=== PATIENT | female | born 1940 | race Caucasian/White ===

== ENCOUNTER → 2017-02-24 | Outpatient (REF) | payer MEDICARE ==
[~2017-02-24] MED LIST: /CELE20CA; /MOXI40TA OR; /TIOT18INH INH; /WARF25TA; /WARF25TA OR; ACET500C; ACET65TA OR; ALBU83IN IN; ASPI325T OR; CARD240T3 OR; CLAR5CHW; CLARITIN; COLA100C2; COLA100C2 OR; COUMADIN; DARV100T OR; DOXYCYC100 PO; DRISDOL50 PO; FEOSOL PO; FERR325T; FERROUS GLUCONATE; FLUID PILL PO; GUAIPOW PO; HYDR25TA6 OR; HYDR7.5T38 PO; KLS75TAB; NITR0.4S SL; OCEAN NASAL SPRAY; OTC ACID REFLUX MED PO; OYST500T76; PERC10TA9 PO; PERC5TAB8 OR; PRED10TA2 OR; PRIL40CA OR; PRILOSEC OTC PO; SENO8.6T5; SIMV40TA2 OR; SPIRIVA INH; THERGRAN; TRAM50TA2; TYLE325T5 PO; VITAMIN D50000 UNT; VITAMIN D50000 UNT OR; VYTORIN40 PO; ZANT150T; ZOCO40TA; ZOCOR40 PO; [UNRECOGNIZED DRUG - OTHER]; [UNRECOGNIZED DRUG - OTHER]; metamucil
[2017-02-24 13:30] LABS: MEAN CORPUSCULAR HEMOGLOBIN 31.2 pg (27.0-33.0); MEAN CORPUSCULAR VOLUME 100.8 fl (80.0-96.0); PLATELET COUNT, AUTOMATED 285 10^3/uL (150-450); WHITE BLOOD COUNT 11.1 10^3/uL (4.0-10.0)
[2017-02-24 13:50] LABS: ALBUMIN 3.8 GM/DL (3.2-5.2); ALBUMIN/GLOBULIN RATIO 1.03 (1.00-1.93); ALKALINE PHOSPHATASE 96 U/L (45-117); ALT/SGPT 15 U/L (12-78); ANION GAP 8 MEQ/L (8-16); AST/SGOT 13 U/L (7-37); BILIRUBIN,TOTAL 0.4 MG/DL (0.2-1.0); BLOOD UREA NITROGEN 13 MG/DL (7-18); CALCIUM LEVEL 9.2 MG/DL (8.8-10.2); CARBON DIOXIDE LEVEL 25 MEQ/L (21-32); CHLORIDE LEVEL 108 MEQ/L (98-107); CHOLESTEROL LEVEL 170 MG/DL (<200); CREATININE FOR GFR 1.13 MG/DL (0.55-1.02); FREE T4 1.18 NG/DL (0.76-1.46); GLOMERULAR FILTRATION RATE 49.8 (>39); GLUCOSE, FASTING 101 MG/DL (83-110); POTASSIUM SERUM 4.1 MEQ/L (3.5-5.1); SODIUM LEVEL 141 MEQ/L (136-145); TOTAL PROTEIN 7.5 GM/DL (6.4-8.2); TRIGLYCERIDES LEVEL 176 MG/DL (<150)
[2017-02-24 13:57] LABS: ERYTHROCYTE SEDIMENTATION RATE 40 mm/hr (0-30)
[2017-02-25 10:47] LABS: ALBUMIN 3.98 GM/DL (3.29-5.55); GAMMA GLOBULIN % 17.7 % (11.1-18.8)
[2017-02-27 00:06] LABS: FREE KAPPA LIGHT CHAINS SERUM 38.9 mg/L (3.3-19.4); FREE LAMBDA LIGHT CHAINS SERUM 34.1 mg/L (5.7-26.3); KAPPA/LAMBDA RATIO SERUM 1.14 (0.26-1.65)
== END ==
LOC: M SFHCADAM 11:09
PROVIDERS: ATTEND Family Medicine
DX: R63.4 Abnormal weight loss (principal); F43.22 Adjustment disorder with anxiety; E78.2 Mixed hyperlipidemia; E74.9 Disorder of carbohydrate metabolism, unspecified; E55.9 Vitamin D deficiency, unspecified; M79.1 Myalgia; Z79.899 Other long term (current) drug therapy

== ENCOUNTER → 2017-02-24 | Outpatient (CLI) | payer MEDICARE ==
--- NOTE | 2017-02-24 13:26 | REP ---
PA and lateral chest: Comparisons are 07/23/2016 and 09/16/2010. There is chronic bilateral interstitial coarsening compatible with chronic fibrosis. This is unchanged. Cardiac size is normal. The jonathan and mediastinum are unchanged unremarkable. There is diffuse demineralization. There are multiple thoracic and lumbar vertebral body compressions with multilevel vertebroplasties. This is unchanged. Impression: There are no acute cardiopulmonary findings. There is chronic fibrosis. There are multiple thoracic and lumbar spine vertebroplasties. No interval change. Signed by Dominik Farr MD 02/24/2017 01:17 P
== END ==
LOC: M ADAMS 11:18
PROVIDERS: ATTEND Family Medicine
DX: J01.90 Acute sinusitis, unspecified (principal); J44.9 Chronic obstructive pulmonary disease, unspecified; M81.0 Age-related osteoporosis without current pathological fracture; F43.22 Adjustment disorder with anxiety; E78.2 Mixed hyperlipidemia; E74.9 Disorder of carbohydrate metabolism, unspecified; E55.9 Vitamin D deficiency, unspecified; M79.1 Myalgia; R63.4 Abnormal weight loss; Z79.899 Other long term (current) drug therapy; Z98.890 Other specified postprocedural states
CPT/HCPCS: 71020; 80053; 80061; 82306; 82550; 83036; 83883; 84165; 84439; 84443; 85027; 85652; 86038; 86431; G0463

== ENCOUNTER 2017-11-18 08:22 | Day surgery (SDC) | payer MEDICARE ==
[~2017-11-18 08:22] MED LIST changes: -/CELE20CA; -/MOXI40TA OR; -/TIOT18INH INH; -/WARF25TA; -/WARF25TA OR; -ACET500C; -ACET65TA OR; +ACETAMINOPHEN 325 MG TAB PO; -ALBU83IN IN; -ASPI325T OR; -CARD240T3 OR; -CLAR5CHW; -CLARITIN; -COLA100C2; -COLA100C2 OR; -COUMADIN; -DARV100T OR; -DOXYCYC100 PO; -DRISDOL50 PO; -FEOSOL PO; -FERR325T; -FERROUS GLUCONATE; -FLUID PILL PO; -GUAIPOW PO; -HYDR25TA6 OR; -HYDR7.5T38 PO; -KLS75TAB; -NITR0.4S SL; -OCEAN NASAL SPRAY; -OTC ACID REFLUX MED PO; -OYST500T76; -PERC10TA9 PO; -PERC5TAB8 OR; +PHENYLEPHRINE HCL 10 % OPHTH. SOL 5ML OD; -PRED10TA2 OR; -PRIL40CA OR; -PRILOSEC OTC PO; +PROPARACAINE 0.5% OPHTH SOL 15ML OD; -SENO8.6T5; -SIMV40TA2 OR; -SPIRIVA INH; -THERGRAN; -TRAM50TA2; -TYLE325T5 PO; -VITAMIN D50000 UNT; -VITAMIN D50000 UNT OR; -VYTORIN40 PO; -ZANT150T; -ZOCO40TA; -ZOCOR40 PO; -[UNRECOGNIZED DRUG - OTHER]; -[UNRECOGNIZED DRUG - OTHER]; -metamucil
[2017-11-18] MEDS ORDERED: KETOROLAC 0.5% OPHTH SOLN OD (08:30)
[2017-11-18] MEDS ORDERED: TRIMETHOBENZAMIDE 300 MG CAP PO (08:30)
[2017-11-18] MEDS ORDERED: AcetaZOLAMIDE 500 MG ER CAP PO (08:30)
[2017-11-18] MEDS: OFLOXACIN 0.3 % (OCUFLOX) OPTH SOL 5ML OD (09:52)
[2017-11-18] MEDS: PHENYLEPHRINE 2.5% OPHTH SOL 2ML OD (09:52)
[2017-11-18] MEDS: TROPICAMIDE 1% OPHTH SOLN 2ML OD (09:52)
[2017-11-18] MEDS: CYCLOPENTOLATE 2% OPHTH SOLN 2ML BTL OD (09:53)
[2017-11-18] MEDS: LIDOCAINE 3.5 % 1ML OPHTH TOPICAL GEL OU (09:53)
[2017-11-18] MEDS ORDERED: fentaNYL 100 MCG/2 ML INJECTION (J3010) As Ordered (10:56)
[2017-11-18] MEDS ORDERED: MIDAZOLAM INJ 2 MG/2 ML VIAL (J2250) As Ordered (10:56)
[2017-11-18] MEDS: POVIDONE-IODINE 5% OPHTH PREP SOL 30ML As Ordered (11:55)
[2017-11-18] MEDS: CEFUROXIME 1MG/0.1ML INTRACAMERAL INJ As Ordered (11:55)
[2017-11-18] MEDS: HEALON DUET (HEALON 10MG/ML 0.55ML & HEALON ENDOCOAT 30MG/ML 0.85ML) As Ordered (11:55)
[2017-11-18] MEDS: LIDOCAINE 1% SDV 5 ML VIAL As Ordered (11:55)
== END 2017-11-18 12:49 | disposition home or self-care (01) ==
LOC: M SDC 08:22
DX: H25.11 Age-related nuclear cataract, right eye (principal); R07.89 Other chest pain; E78.5 Hyperlipidemia, unspecified; M81.0 Age-related osteoporosis without current pathological fracture; F41.9 Anxiety disorder, unspecified; Z79.899 Other long term (current) drug therapy; J44.9 Chronic obstructive pulmonary disease, unspecified; Z87.891 Personal history of nicotine dependence; Z85.118 Personal history of other malignant neoplasm of bronchus and lung
CPT/HCPCS: 66984

== ENCOUNTER 2017-11-25 08:17 | Day surgery (SDC) | payer MEDICARE ==
[~2017-11-25 08:17] MED LIST changes: -PHENYLEPHRINE HCL 10 % OPHTH. SOL 5ML OD; +PHENYLEPHRINE HCL 10 % OPHTH. SOL 5ML OS; -PROPARACAINE 0.5% OPHTH SOL 15ML OD; +PROPARACAINE 0.5% OPHTH SOL 15ML OS
[2017-11-25] MEDS: OFLOXACIN 0.3 % (OCUFLOX) OPTH SOL 5ML OS (08:52)
[2017-11-25] MEDS: LIDOCAINE 3.5 % 1ML OPHTH TOPICAL GEL OU (08:52)
[2017-11-25] MEDS: CYCLOPENTOLATE 2% OPHTH SOLN 2ML BTL OS (08:52)
[2017-11-25] MEDS: TROPICAMIDE 1% OPHTH SOLN 2ML OS (08:52)
[2017-11-25] MEDS: PHENYLEPHRINE 2.5% OPHTH SOL 2ML OS (08:52)
[2017-11-25] MEDS: POVIDONE-IODINE 5% OPHTH PREP SOL 30ML As Ordered (09:35)
[2017-11-25] MEDS ORDERED: MIDAZOLAM INJ 2 MG/2 ML VIAL (J2250) As Ordered (09:40)
[2017-11-25] MEDS ORDERED: fentaNYL 100 MCG/2 ML INJECTION (J3010) As Ordered (09:40)
[2017-11-25] MEDS: BALANCED SALT IRRIGATION SOLUTION 500ML BAG (FOR OR EYE MACHINE) As Ordered (09:42)
[2017-11-25] MEDS: LIDOCAINE 1% SDV 5 ML VIAL As Ordered (09:43)
[2017-11-25] MEDS: CEFUROXIME 1MG/0.1ML INTRACAMERAL INJ As Ordered (09:43)
[2017-11-25] MEDS: HEALON DUET (HEALON 10MG/ML 0.55ML & HEALON ENDOCOAT 30MG/ML 0.85ML) As Ordered (09:43)
[2017-11-25] MEDS: ACETYLCHOLINE OPHTH SOLN 1% 2ML (MIOCHOL-E) As Ordered (09:51)
[2017-11-25] MEDS ORDERED: TRIMETHOBENZAMIDE 300 MG CAP PO (10:30)
[2017-11-25] MEDS ORDERED: KETOROLAC 0.5% OPHTH SOLN OS (10:30)
[2017-11-25] MEDS: AcetaZOLAMIDE 500 MG ER CAP PO (10:30)
== END 2017-11-25 10:55 | disposition home or self-care (01) ==
LOC: M SDC 08:17
DX: H25.12 Age-related nuclear cataract, left eye (principal); J44.9 Chronic obstructive pulmonary disease, unspecified; E78.5 Hyperlipidemia, unspecified; Z88.8 Allergy status to other drugs, medicaments and biological substances; M81.0 Age-related osteoporosis without current pathological fracture; F41.9 Anxiety disorder, unspecified; Z87.891 Personal history of nicotine dependence; Z85.118 Personal history of other malignant neoplasm of bronchus and lung; Z79.899 Other long term (current) drug therapy
CPT/HCPCS: 66984

== ENCOUNTER → 2017-12-03 | Outpatient (REF) | payer MEDICARE ==
[2017-12-03 13:24] LABS: HEMATOCRIT 42.1 % (36.0-47.0); HEMOGLOBIN 13.3 g/dl (12.0-15.5); MEAN CORPUSCULAR HEMOGLOBIN 31.4 pg (27.0-33.0); MEAN CORPUSCULAR HGB CONC 31.6 g/dl (32.0-36.5); MEAN CORPUSCULAR VOLUME 99.5 fl (80.0-96.0); PLATELET COUNT, AUTOMATED 272 10^3/uL (150-450); RED BLOOD COUNT 4.23 10^6/uL (4.00-5.40); RED CELL DISTRIBUTION WIDTH 13.2 % (11.5-14.5)
[2017-12-03 13:33] LABS: APPEARANCE, URINE CLEAR (CLEAR); BACTERIA, URINE AUTO 1+ (NEGATIVE); BILIRUBIN, URINE AUTO NEGATIVE (NEGATIVE); BLOOD, URINE BLOOD NEGATIVE (NEGATIVE); COLOR, URINE YELLOW (YELLOW); GLUCOSE, URINE (UA) AUTO NEGATIVE (NEGATIVE); KETONE, URINE AUTO TRACE mg/dL (NEGATIVE); LEUKOCYTE ESTERASE, URINE AUTO 3+ (NEGATIVE); MUCUS, URINE SMALL (NEGATIVE); NITRITE, URINE AUTO NEGATIVE (NEGATIVE); PROTEIN, URINE AUTO NEGATIVE (NEGATIVE); RBC, URINE AUTO 5 /HPF (0-3); SPECIFIC GRAVITY URINE AUTO 1.012 (1.002-1.035); SQUAMOUS EPITHELIAL CELL UR AU 2 /HPF (0-6); TRANSITIONAL EPITHELIAL AUTO <1 /HPF; WBC, URINE AUTO 16 /HPF (0-3)
[2017-12-03 13:47] LABS: ALBUMIN 3.9 GM/DL (3.2-5.2); ALBUMIN/GLOBULIN RATIO 0.91 (1.00-1.93); ALKALINE PHOSPHATASE 120 U/L (45-117); ALT/SGPT 18 U/L (12-78); AMYLASE 40 U/L (25-115); ANION GAP 11 MEQ/L (8-16); AST/SGOT 14 U/L (7-37); BILIRUBIN,TOTAL 0.5 MG/DL (0.2-1.0); BLOOD UREA NITROGEN 19 MG/DL (7-18); CALCIUM LEVEL 9.2 MG/DL (8.8-10.2); CARBON DIOXIDE LEVEL 20 MEQ/L (21-32); CHLORIDE LEVEL 109 MEQ/L (98-107); FREE T4 1.37 NG/DL (0.76-1.46); GLOMERULAR FILTRATION RATE 46.4 (>39); GLUCOSE, FASTING 102 MG/DL (70-100); LIPASE 82 U/L (73-393); POTASSIUM SERUM 3.8 MEQ/L (3.5-5.1); SODIUM LEVEL 140 MEQ/L (136-145); TOTAL PROTEIN 8.2 GM/DL (6.4-8.2)
== END ==
LOC: M SFHCADAM 10:41
DX: K21.9 Gastro-esophageal reflux disease without esophagitis (principal); R63.4 Abnormal weight loss; R10.30 Lower abdominal pain, unspecified
CPT/HCPCS: 82150

== ENCOUNTER → 2018-01-29 | Outpatient (CLI) | payer MEDICARE ==
[2018-01-29 17:37] LABS: BACTERIA, URINE AUTO NEGATIVE (NEGATIVE); MUCUS, URINE SMALL (NEGATIVE); RBC, URINE AUTO 1 /HPF (0-3); SQUAMOUS EPITHELIAL CELL UR AU 1 /HPF (0-6); WBC, URINE AUTO 2 /HPF (0-3)
== END ==
LOC: M WUC 11:18
DX: J84.10 Pulmonary fibrosis, unspecified (principal); M51.04 Intervertebral disc disorders with myelopathy, thoracic region; M51.06 Intervertebral disc disorders with myelopathy, lumbar region; M43.8X6 Other specified deforming dorsopathies, lumbar region; J20.9 Acute bronchitis, unspecified; R10.30 Lower abdominal pain, unspecified
CPT/HCPCS: 81015

== ENCOUNTER → 2018-05-13 | Outpatient (CLI) | payer MEDICARE ==
[~2018-05-13] MED LIST changes: +/CELE20CA; +/MOXI40TA OR; +/TIOT18INH INH; +/WARF25TA; +/WARF25TA OR; +ACET500C; +ACET65TA OR; -ACETAMINOPHEN 325 MG TAB PO; +ALBU83IN IN; +ASPI325T OR; +CARD240T3 OR; +CLAR5CHW; +CLARITIN; +COLA100C2; +COLA100C2 OR; +COUMADIN; +DARV100T OR; +DOXYCYC100 PO; +DRISDOL50 PO; +FEOSOL PO; +FERR325T; +FERROUS GLUCONATE; +FLUID PILL PO; +GUAIPOW PO; +HYDR25TA6 OR; +HYDR7.5T38 PO; +INCR1INH; +KLS75TAB; +NITR0.4S SL; +OCEAN NASAL SPRAY; +OMEP20CA3; +OTC ACID REFLUX MED PO; +OYST500T76; +PERC10TA9 PO; +PERC5TAB8 OR; -PHENYLEPHRINE HCL 10 % OPHTH. SOL 5ML OS; +PRED10TA2 OR; +PRIL40CA OR; +PRILOSEC OTC PO; +PROAAER10 INH; -PROPARACAINE 0.5% OPHTH SOL 15ML OS; +SENO8.6T5; +SIMV40TA2 OR; +SPIRIVA INH; +THERGRAN; +TRAM50TA2; +TYLE325T5 PO; +VITAMIN D50000 UNT; +VITAMIN D50000 UNT OR; +VYTORIN40 PO; +ZANT150T; +ZOCO40TA; +ZOCOR40 PO; +[UNRECOGNIZED DRUG - OTHER]; +[UNRECOGNIZED DRUG - OTHER]; +metamucil
--- NOTE | 2018-05-13 17:13 | REP ---
CHEST, TWO VIEWS: Two views of the chest are performed and compared with multiple prior exams, most recent of which is 01/29/2018. Severe interstitial fibrosis is again seen bilaterally, predominately in the lung bases appearing relatively stable. There are also emphysematous and bullous changes bilaterally. There is no definite superimposed acute infiltrate. The heart is normal in size. Mediastinal silhouette is unchanged. Metallic clips are seen in the right hilar region. There is osteopenia. Multiple compression deformities are noted of the thoracic vertebral bodies with kyphoplasty noted in multiple levels. There is one new moderate compression deformity of a mid thoracic vertebral body compared to the most recent exam. Metallic clips are seen in the right upper quadrant of the abdomen. IMPRESSION: Severe stable fibrotic changes and emphysematous change. No definite superimposed acute infiltrate. One new moderate compression deformity of a midthoracic vertebral body noted, with other multiple compression deformities appearing stable. Electronically Signed by Dominik Bernal MD 05/13/2018 07:46 P
== END ==
LOC: M SMT 14:39
PROVIDERS: ATTEND Internal Medicine Pulmonary Disease
DX: J43.1 Panlobular emphysema (principal); J96.11 Chronic respiratory failure with hypoxia

== ENCOUNTER → 2018-08-10 | Outpatient (REF) | payer MEDICARE ==
[~2018-08-10] MED LIST changes: -/CELE20CA; -/MOXI40TA OR; -/TIOT18INH INH; -/WARF25TA; -/WARF25TA OR; +AVEL1TAB2 OR; +CELE1CAP4; +COUM1TAB18; +COUM1TAB18 OR; +SPIR1CAP INH
[2018-08-10 12:58] LABS: HEMATOCRIT 39.4 % (36.0-47.0); MEAN CORPUSCULAR HEMOGLOBIN 31.2 pg (27.0-33.0); MEAN CORPUSCULAR HGB CONC 30.5 g/dl (32.0-36.5); MEAN CORPUSCULAR VOLUME 102.3 fl (80.0-96.0); PLATELET COUNT, AUTOMATED 316 10^3/uL (150-450); RED BLOOD COUNT 3.85 10^6/uL (4.00-5.40); WHITE BLOOD COUNT 20.5 10^3/uL (4.0-10.0)
[2018-08-10 13:49] LABS: ALBUMIN 3.6 GM/DL (3.2-5.2); BILIRUBIN,TOTAL 0.3 MG/DL (0.2-1.0); CALCIUM LEVEL 9.5 MG/DL (8.8-10.2); CHOLESTEROL RISK RATIO 2.815 (<5); CREATININE FOR GFR 1.04 MG/DL (0.55-1.30); FREE T4 1.06 NG/DL (0.76-1.46); GLOMERULAR FILTRATION RATE 54.7 (>39); POTASSIUM SERUM 4.4 MEQ/L (3.5-5.1); THYROID STIMULATING HORMONE 2.34 uIU/ML (0.358-3.740); TOTAL PROTEIN 7.3 GM/DL (6.4-8.2)
[2018-08-10 14:47] LABS: ERYTHROCYTE SEDIMENTATION RATE 46 mm/hr (0-30)
== END ==
LOC: M SFHCADAM 09:30
PROVIDERS: ATTEND Family Medicine
DX: F43.22 Adjustment disorder with anxiety (principal); E78.2 Mixed hyperlipidemia; M15.9 Polyosteoarthritis, unspecified

== ENCOUNTER → 2018-10-29 | Outpatient (REF) | payer MEDICARE ==
[~2018-10-29] MED LIST changes: -OMEP20CA3; +OMEP20CA4
[2018-10-29 13:01] LABS: BASO # 0.1 10^3/uL (0.0-0.2); BASO % 0.4 % (0.0-1.0); EOS # 0.4 10^3/uL (0.0-0.50); EOS % 2.3 % (0.0-3.0); HEMATOCRIT 41.7 % (36.0-47.0); HEMOGLOBIN 13.1 g/dl (12.0-15.5); LYMPH # 2.6 10^3/uL (1.5-4.5); LYMPH % 16.6 % (24.0-44.0); MEAN CORPUSCULAR HEMOGLOBIN 32.1 pg (27.0-33.0); MEAN CORPUSCULAR HGB CONC 31.4 g/dl (32.0-36.5); MEAN CORPUSCULAR VOLUME 102.2 fl (80.0-96.0); MONO # 1.3 10^3/uL (0.0-0.8); MONO % 8.2 % (0.0-5.0); NEUTROPHILS # 11.4 10^3/uL (1.8-7.7); PLATELET COUNT, AUTOMATED 336 10^3/uL (150-450); RED BLOOD COUNT 4.08 10^6/uL (4.00-5.40); WHITE BLOOD COUNT 15.8 10^3/uL (4.0-10.0)
[2018-10-29 13:24] LABS: HEMOGLOBIN A1c 7.6 %
[2018-10-29 13:33] LABS: CALCIUM LEVEL 8.9 MG/DL (8.8-10.2); CREATININE FOR GFR 1.2 MG/DL (0.55-1.30); GLOMERULAR FILTRATION RATE 46.3 (>39); POTASSIUM SERUM 4.6 MEQ/L (3.5-5.1)
== END ==
LOC: M SFHCADAM 10:00
PROVIDERS: ATTEND Family Medicine
DX: D72.829 Elevated white blood cell count, unspecified (principal); R73.03 Prediabetes

== ENCOUNTER → 2019-02-16 | Outpatient (CLI) | payer MEDICARE ==
--- NOTE | 2019-02-16 11:15 | REP ---
Clinical: Cough. Technique: PA and lateral. Comparison: 05/13/2018. Findings: Mediastinum and cardiac silhouette are stable with evidence for multilevel vertebroplasty and extensive osteopenia and degenerative changes to the thoracic spine. Cardiac silhouette is stable/unchanged. Lung pichardo demonstrate diffuse fibrosis and scarring similar to prior examination. No obvious acute consolidation or effusion. No pneumothorax. Impression: 1. Relatively stable chronic changes including diffuse fibrosis and scarring. No obvious acute consolidation or effusion. Electronically Signed by Alfonso Bartlett MD 02/16/2019 11:06 A
== END ==
LOC: M ADAMS 10:52
PROVIDERS: ATTEND Internal Medicine Pulmonary Disease
DX: J43.1 Panlobular emphysema (principal); R05 Cough; J84.10 Pulmonary fibrosis, unspecified

== ENCOUNTER → 2019-03-09 | Outpatient (REF) | payer MEDICARE ==
[2019-03-09 12:45] LABS: CALCIUM LEVEL 9.6 MG/DL (8.8-10.2); CREATININE FOR GFR 1.22 MG/DL (0.55-1.30); GLOMERULAR FILTRATION RATE 45.4 (>39); POTASSIUM SERUM 4.6 MEQ/L (3.5-5.1)
== END ==
LOC: M LABDRWAD 12:22
PROVIDERS: ATTEND Internal Medicine Pulmonary Disease
DX: J43.1 Panlobular emphysema (principal)

== ENCOUNTER → 2019-04-16 | Outpatient (CLI) | payer MEDICARE ==
[~2019-04-16] MED LIST changes: +OMEP-172; -OMEP20CA4
[2019-04-16 17:53] LABS: CALCIUM LEVEL 9.6 MG/DL (8.8-10.2); CREATININE FOR GFR 1.41 MG/DL (0.55-1.30); GLOMERULAR FILTRATION RATE 38.4 (>39); POTASSIUM SERUM 4.5 MEQ/L (3.5-5.1)
== END ==
LOC: M ADAMS 09:53
PROVIDERS: ATTEND Internal Medicine Pulmonary Disease
DX: J96.11 Chronic respiratory failure with hypoxia (principal); J43.1 Panlobular emphysema

== ENCOUNTER 2019-04-26 10:13 | Inpatient (IN) | payer MEDICARE ==
[~2019-04-26] VITALS: Ht 142.2 cm; Wt 47.0 kg
[2019-04-26] MEDS: PANTOPRAZOLE 40MG TAB (PROTONIX) PO SCH (09:00)
[~2019-04-26 10:13] MED LIST changes: -INCR1INH; +INCR1INH INH; -OMEP-172; +OMEP1CAP73
[2019-04-26] MEDS ORDERED: IPRATROPIUM 0.5MG/ALBUTEROL 2.5MG INH SOL UD 3ML (DUONEB)(J7620) NEB PRN (11:00)
[2019-04-26] MEDS ORDERED: **NOTE PATIENT COMMENT** MISC XX SCH (11:00)
[2019-04-26 11:30] VITALS: BP 122/62
[2019-04-26 11:55] LABS: HEMATOCRIT 41.5 % (36.0-47.0); MEAN CORPUSCULAR HEMOGLOBIN 31.2 pg (27.0-33.0); MEAN CORPUSCULAR HGB CONC 31.3 g/dl (32.0-36.5); MEAN CORPUSCULAR VOLUME 99.5 fl (80.0-96.0); PLATELET COUNT, AUTOMATED 321 10^3/uL (150-450); RED BLOOD COUNT 4.17 10^6/uL (4.00-5.40); WHITE BLOOD COUNT 23.1 10^3/uL (4.0-10.0)
[2019-04-26] MEDS: SUCRALFATE 1 GM TAB PO SCH ×3 (12:00→21:51)
[2019-04-26 12:27] LABS: ALBUMIN 2.5 GM/DL (3.2-5.2); BILIRUBIN,TOTAL 0.4 MG/DL (0.2-1.0); CALCIUM LEVEL 9.9 MG/DL (8.8-10.2); CREATININE FOR GFR 1.64 MG/DL (0.55-1.30); GLOMERULAR FILTRATION RATE 32.3 (>39); POTASSIUM SERUM 4.7 MEQ/L (3.5-5.1); TOTAL PROTEIN 7.7 GM/DL (6.4-8.2)
--- NOTE | 2019-04-26 12:37 | REP ---
CHEST, TWO VIEWS: Two views of the chest are performed and compared to a prior study 02/16/2019. Severe bibasilar fibrotic change appears relatively stable with no definite superimposed acute infiltrate. Heart is not enlarged. Mediastinal silhouette is unchanged. There is calcification of the thoracic aorta. Multiple metallic clips are seen in the right hilar region. Multiple compression deformities of thoracic spine appear unchanged. There is evidence of prior kyphoplasty of several levels. There is osteopenia. IMPRESSION: Stable chronic changes with severe bibasilar fibrosis. No definite superimposed acute infiltrate. Electronically Signed by Dominik Bernal MD 04/26/2019 12:52 P
[2019-04-26] MEDS ORDERED: DEXTROSE 50% 50 ML SYRINGE IV PRN (12:45)
[2019-04-26] MEDS ORDERED: GLUCOSE 4 GM CHEW TABLET PO PRN (12:45)
[2019-04-26] MEDS ORDERED: GLUCAGON FOR INJ 1 MG VIAL (J1610) SC PRN (12:45)
[2019-04-26] MEDS: methylPREDNISolone INJ 40 MG/1 ML VIAL (J2920) IV SCH (12:54)
[2019-04-26] MEDS: cefTRIAXone SOD 1 GM in D5W MINI-BAG PLUS 50 ML IV SCH (12:54)
[2019-04-26] MEDS: NS 1,000 ML IV SCH ×2 (13:02→22:36)
[2019-04-26 13:08] LABS: LYMPHOCYTES 1 % (16-44); MONOCYTES 1 % (0-5); MYELOCYTES 1 % (0-0); NEUTROPHILS 90 % (28-66); PLATELET ESTIMATE NORMAL (NORMAL)
[2019-04-26] MEDS ORDERED: HumaLOG INSULIN (NovoLOG) PER UNIT SC ONE ×2 (13:15→15:00)
[2019-04-26] MEDS ORDERED: SIMV40TA20 PO (13:21)
[2019-04-26] MEDS ORDERED: SLOWTAB2 PO (13:21)
[2019-04-26] MEDS ORDERED: OMEP40CA97 PO (13:21)
[2019-04-26] MEDS ORDERED: MM S100C PO (13:22)
[2019-04-26] MEDS ORDERED: ALBU83IN INH (13:24)
[2019-04-26] MEDS ORDERED: ACET-683 PO (13:24)
[2019-04-26] MEDS ORDERED: PRED10TA2 PO (13:27)
[2019-04-26] MEDS: IPRATROPIUM 0.5MG/ALBUTEROL 2.5MG INH SOL UD 3ML (DUONEB)(J7620) NEB SCH ×2 (13:48→19:42)
[2019-04-26 14:00] VITALS: BP 116/59
[2019-04-26] MEDS ORDERED: BIOTLIQ9 MT (14:19)
[2019-04-26] MEDS: CLOTRIMAZOLE 10 MG TROCHE PO SCH ×3 (14:46→21:50)
[2019-04-26 15:38] LABS: HEMOGLOBIN A1c 13.3 %
[2019-04-26] MEDS: HumaLOG INSULIN (NovoLOG) PER UNIT SC SCH ×2 (17:51→21:51)
[2019-04-26] MEDS: SIMVASTATIN 40 MG TAB PO SCH (21:51)
[2019-04-26] MEDS: MIRTAZAPINE 7.5MG PER 1/2 TABLET PO SCH (21:51)
[2019-04-26 22:00] VITALS: BP 124/53
[2019-04-27] MEDS: methylPREDNISolone INJ 40 MG/1 ML VIAL (J2920) IV SCH ×2 (00:07→12:29)
[2019-04-27] MEDS: IPRATROPIUM 0.5MG/ALBUTEROL 2.5MG INH SOL UD 3ML (DUONEB)(J7620) NEB SCH ×4 (01:40→18:03)
[2019-04-27 02:00] VITALS: BP 122/50
[2019-04-27] MEDS: CLOTRIMAZOLE 10 MG TROCHE PO SCH ×5 (05:47→20:55)
[2019-04-27 06:00] VITALS: BP 129/63
[2019-04-27 06:05] LABS: HEMATOCRIT 35.6 % (36.0-47.0); MEAN CORPUSCULAR HEMOGLOBIN 30.5 pg (27.0-33.0); MEAN CORPUSCULAR HGB CONC 30.3 g/dl (32.0-36.5); MEAN CORPUSCULAR VOLUME 100.6 fl (80.0-96.0); PLATELET COUNT, AUTOMATED 275 10^3/uL (150-450); RED BLOOD COUNT 3.54 10^6/uL (4.00-5.40); WHITE BLOOD COUNT 19.2 10^3/uL (4.0-10.0)
[2019-04-27 06:10] LABS: HEMOGLOBIN 10.8 g/dl (12.0-15.5)
[2019-04-27 06:29] LABS: CALCIUM LEVEL 8.5 MG/DL (8.8-10.2); CREATININE FOR GFR 1.05 MG/DL (0.55-1.30); POTASSIUM SERUM 5.1 MEQ/L (3.5-5.1)
[2019-04-27] MEDS: HumaLOG INSULIN (NovoLOG) PER UNIT SC SCH ×4 (07:39→20:55)
[2019-04-27] MEDS: SUCRALFATE 1 GM TAB PO SCH ×4 (07:40→20:55)
[2019-04-27] MEDS: BACTRIM 160MG/800MG DS TAB PO SCH (08:52)
[2019-04-27] MEDS: ENOXAPARIN 30 MG/0.3 ML SYR (J1650) SC SCH (08:53)
[2019-04-27] MEDS: NS 1,000 ML IV SCH (08:53)
[2019-04-27] MEDS: PANTOPRAZOLE 40MG TAB (PROTONIX) PO SCH (08:53)
[2019-04-27 10:00] VITALS: BP 113/60
[2019-04-27] MEDS: cefTRIAXone SOD 1 GM in D5W MINI-BAG PLUS 50 ML IV SCH (13:40)
[2019-04-27 14:00] VITALS: BP 114/62
--- NOTE | 2019-04-27 14:24 | IPN ---
DATE: 04/27/2019 Ciarra feels less short of breath. Overall she feels better. Her white count is down and her blood sugar is coming under better control. Hemoglobin A1c was 13%. It was 7.6% a few months ago. She was not started on any diabetic medical treatment as the anticipation was that her steroids were going to be weaned and her blood sugar would improve. Unfortunately, steroids were not and she developed some significant diabetes. She is now responding to insulin therapy. PHYSICAL EXAMINATION: Afebrile. Vital signs stable. Oxygen saturations 98%. She is smiling and looks much better. HEENT: Unremarkable. Cushingoid appearance. Lungs: Extra wheezes at the bases. Better air movement. Heart: Regular rhythm. Abdomen: Soft, nontender. No peripheral edema. Labs were reviewed. Renal function is back to baseline. Creatinine is 1.0. White count is 19.2 on steroids. Hemoglobin 10 (improved after hydration). Blood sugars are 200-300. IMPRESSION: 1. Exacerbation of chronic obstructive pulmonary disease (COPD) secondary to bronchitis. Chest x-ray shows linear bibasilar fibrosis without infiltrate. She did have change in the color of her sputum. I will continue her on her ceftriaxone. We will put her on oral antibiotics tomorrow. 2. Type 2 diabetes newly diagnosed uncontrolled. PLAN: 1. Continue sliding scale insulin. Begin basal insulin with detemir 10 units daily. Stop IV fluids. She is taking oral well. 2. Depression: I started her on mirtazapine on admission. This should help her appetite. I think most of her weight loss was attributable to the polyuria from one newly diagnosed diabetes. 3. Hyperlipidemia: Continue simvastatin 40 mg daily. 4. Chronic steroid therapy: She is on trimethoprim DS one tablet every Thursday, Thursday, Thursday for PCP prophylaxis. In the office, we should see when her last DEXA scan was.
[2019-04-27 18:00] VITALS: BP 115/64
[2019-04-27] MEDS: SIMVASTATIN 40 MG TAB PO SCH (20:56)
[2019-04-27] MEDS: MIRTAZAPINE 7.5MG PER 1/2 TABLET PO SCH (20:56)
[2019-04-27] MEDS ORDERED: LEVEMIR (INSULIN DETEMIR) 1 UNITS/0.01ML SC SCH (21:00)
[2019-04-27 22:00] VITALS: BP 114/73
[2019-04-28 02:00] VITALS: BP 118/75
[2019-04-28] MEDS: IPRATROPIUM 0.5MG/ALBUTEROL 2.5MG INH SOL UD 3ML (DUONEB)(J7620) NEB SCH ×4 (02:54→20:30)
[2019-04-28] MEDS: CLOTRIMAZOLE 10 MG TROCHE PO SCH ×5 (05:55→21:12)
[2019-04-28 06:00] VITALS: BP 110/65
[2019-04-28 06:13] LABS: HEMATOCRIT 32.4 % (36.0-47.0); HEMOGLOBIN 10.1 g/dl (12.0-15.5); MEAN CORPUSCULAR HEMOGLOBIN 31.3 pg (27.0-33.0); MEAN CORPUSCULAR HGB CONC 31.2 g/dl (32.0-36.5); MEAN CORPUSCULAR VOLUME 100.3 fl (80.0-96.0); PLATELET COUNT, AUTOMATED 266 10^3/uL (150-450); RED BLOOD COUNT 3.23 10^6/uL (4.00-5.40); WHITE BLOOD COUNT 19.6 10^3/uL (4.0-10.0)
[2019-04-28 06:35] LABS: CALCIUM LEVEL 8.4 MG/DL (8.8-10.2); CREATININE FOR GFR 1.16 MG/DL (0.55-1.30); GLOMERULAR FILTRATION RATE 48.1 (>39); POTASSIUM SERUM 4.2 MEQ/L (3.5-5.1)
[2019-04-28] MEDS: HumaLOG INSULIN (NovoLOG) PER UNIT SC SCH ×4 (08:33→21:41)
[2019-04-28] MEDS: SUCRALFATE 1 GM TAB PO SCH ×2 (08:33→12:37)
[2019-04-28] MEDS: ENOXAPARIN 30 MG/0.3 ML SYR (J1650) SC SCH (08:33)
[2019-04-28] MEDS: PANTOPRAZOLE 40MG TAB (PROTONIX) PO SCH (08:33)
[2019-04-28] MEDS: predniSONE 20 MG TAB PO SCH (08:33)
--- NOTE | 2019-04-28 11:46 | IPNPDOC ---
Subjective Date Seen The patient was seen on 04/28/19. Subjective Chief Complaint/HPI COPD exacerbation, DM Events since last encounter Started Levemir yesterday, blood sugars slowly coming down. c/o BLE numbness, burning with activity. Sates breathing is near baseline. Oxygen weaned down at rest, needs increase with exertion. Constitutional: Denies: Chills, Fever, Night Sweats ENT: Denies: Head Aches, Ear Pain, Dysphagia Pulmonary: Reports: Dyspnea, Cough Cardiovascular: Reports: Orthopnea; Denies: Chest Pain, Palpitations, Paroxysmal Noc. Dyspnea, Lt Headedness Gastrointestinal: Denies: Nausea, Vomiting, Abdominal Pain, Diarrhea, Constipation Genitourinary: Denies: Dysuria, Frequency, Incontinence, Retention Psych: Reports: Mood Normal; Denies: Depression, Memory Issues Objective Physical Examination General Exam: Positive: Alert, Cooperative, No Acute Distress ENT Exam: Positive: Atraumatic, Mucous membr. moist/pink, Pharynx Normal Neck Exam: Positive: Supple; Negative: JVD, thyromegaly Chest Exam: Positive: Clear to auscultation, Diminished Heart Exam: Positive: Rate Normal, Regular Rhythm, Normal S1, Normal S2; Negative: Murmurs, Rubs Abdomen Exam: Positive: Normal bowel sounds, Soft; Negative: Tenderness, Hepatospenomegaly Extremity Exam: Positive: Normal pulses; Negative: Clubbing, Cyanosis, Edema Psych Exam: Positive: Mental status NL, Mood NL, Oriented x 3 Assessment /Plan Problems (1) COPD exacerbation Status: Acute Response to Treatment: Improving Problem Text: sats between 88-92%. expect exertional dyspnea with noted fibrosis on imaging. Prednisone 40 mg po daily. Continue ceftriaxone. weaned to baseline oxygen needs (2) Diabetes mellitus Status: Acute Problem Text: new onset. Staretd on lvemir. Continue RISS. Consider Gabapentin for potential neuropathy in BLE. Attending to review. (3) Depression Status: Chronic Response to Treatment: Stable (4) GERD (gastroesophageal reflux disease) Status: Chronic Response to Treatment: Stable Plan/VTE VTE Prophylaxis Ordered?: Yes (lovenox) VS, I&O, 24H, Fishbone Vital Signs/I&O Vital Signs Date Time Temp Pulse Resp B/P (MAP) Pulse Ox O2 Delivery O2 Flow Rate FiO2 04/28/19 08:30 2.0 04/28/19 06:00 97.0 95 18 110/65 (80) 95 Nasal Cannula I&O- Last 24 Hours up to 6 AM 04/28/19 06:00 Intake Total 1750 ml Output Total 600 ml Balance 1150 ml Laboratory Data 24H LABS Laboratory Tests 2 04/27/19 16:57: Bedside Glucose (Misc Panel) 288H 04/27/19 20:30: Bedside Glucose (Misc Panel) 276H 04/28/19 05:56: Nucleated Red Blood Cells % (auto) 0.0, Anion Gap 8, Glomerular Filtration Rate 48.1, Calcium Level 8.4L 04/28/19 11:21: Bedside Glucose (Misc Panel) 214H CBC/BMP Laboratory Tests 04/28/19 05:56 Mulu Anderson [employer] Apr 28, 2019 11:41
[2019-04-28] MEDS: cefTRIAXone SOD 1 GM in D5W MINI-BAG PLUS 50 ML IV SCH (12:37)
[2019-04-28 14:00] VITALS: BP 112/64
[2019-04-28] MEDS: SUCRALFATE SUSP 1GM/10ML UD PO SCH ×2 (17:31→21:11)
[2019-04-28] MEDS ORDERED: LEVEMIR (INSULIN DETEMIR) 1 UNITS/0.01ML SC SCH (21:00)
[2019-04-28] MEDS: CEFDINIR 300 MG CAP (OMNICEF) PO SCH (21:11)
[2019-04-28] MEDS: MIRTAZAPINE 7.5MG PER 1/2 TABLET PO SCH (21:12)
[2019-04-28] MEDS: SIMVASTATIN 40 MG TAB PO SCH (21:12)
[2019-04-29] MEDS: IPRATROPIUM 0.5MG/ALBUTEROL 2.5MG INH SOL UD 3ML (DUONEB)(J7620) NEB SCH ×4 (02:00→19:35)
[2019-04-29] MEDS: CLOTRIMAZOLE 10 MG TROCHE PO SCH ×5 (05:38→21:21)
[2019-04-29 06:00] VITALS: BP 115/53
[2019-04-29 06:37] LABS: HEMATOCRIT 35.5 % (36.0-47.0); HEMOGLOBIN 10.8 g/dl (12.0-15.5); MEAN CORPUSCULAR HEMOGLOBIN 30.9 pg (27.0-33.0); MEAN CORPUSCULAR HGB CONC 30.4 g/dl (32.0-36.5); MEAN CORPUSCULAR VOLUME 101.4 fl (80.0-96.0); PLATELET COUNT, AUTOMATED 260 10^3/uL (150-450); WHITE BLOOD COUNT 21.9 10^3/uL (4.0-10.0)
[2019-04-29 07:05] LABS: CALCIUM LEVEL 9.2 MG/DL (8.8-10.2); CREATININE FOR GFR 1.24 MG/DL (0.55-1.30); GLOMERULAR FILTRATION RATE 44.5 (>39); POTASSIUM SERUM 3.7 MEQ/L (3.5-5.1)
[2019-04-29] MEDS: CEFDINIR 300 MG CAP (OMNICEF) PO SCH ×2 (09:22→21:21)
[2019-04-29] MEDS: BACTRIM 160MG/800MG DS TAB PO SCH (09:22)
[2019-04-29] MEDS: SUCRALFATE SUSP 1GM/10ML UD PO SCH ×4 (09:22→21:19)
[2019-04-29] MEDS: PANTOPRAZOLE 40MG TAB (PROTONIX) PO SCH (09:22)
[2019-04-29] MEDS: HumaLOG INSULIN (NovoLOG) PER UNIT SC SCH ×4 (09:23→21:20)
[2019-04-29] MEDS: predniSONE 20 MG TAB PO SCH (09:23)
[2019-04-29] MEDS: ENOXAPARIN 30 MG/0.3 ML SYR (J1650) SC SCH (09:23)
[2019-04-29] MEDS: ACETAMINOPHEN 500 MG TAB PO PRN ×2 (12:25→21:21)
--- NOTE | 2019-04-29 17:15 | IPN ---
DATE: 04/29/2019 Ciarra had hypoglycemia which is surprising. She came in with a blood sugar of 600. We have only been increasing her basilar insulin by less than 50% of the coverage scale on a daily basis. In any case we got her blood sugars down into the 50's and has recovered from this. PHYSICAL EXAMINATION: VITAL SIGNS: Stable, afebrile. LUNGS: A few wheezes. HEART: Regular. ABDOMEN: Soft and nontender. LABS: White count 21.9 (on steroids-apparently [facility] or [facility] is not willing to accept her because has a leukocytosis, hopefully they understand the steroid therapy caused the leukocytosis. She has no signs of active infection). Electrolytes are unremarkable. Blood sugar this morning was 333. IMPRESSION: 1. Exacerbation of COPD. Continue prednisone, Reduce the dose to 20 mg daily. Continue Cefdinir 300 mg twice a day and stop on 05/03/2019. Continue nebulizer bronchodilator. 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 2. Steroid induced type 2 diabetes, reduce her basal insulin dose to the sliding scale. 3. Hyperlipidemia. Simvastatin 40 mg. 4. Sleep disturbance and depression. Continue Remeron 7.5 mg at bedtime. Mood seems to be improving.
[2019-04-29] MEDS: LEVEMIR (INSULIN DETEMIR) 1 UNITS/0.01ML SC SCH (21:20)
[2019-04-29] MEDS: MIRALAX *UNIT DOSE* 17GM PACKET PO SCH (21:20)
[2019-04-29] MEDS: SIMVASTATIN 40 MG TAB PO SCH (21:21)
[2019-04-29] MEDS: MIRTAZAPINE 7.5MG PER 1/2 TABLET PO SCH (21:21)
[2019-04-30] MEDS: IPRATROPIUM 0.5MG/ALBUTEROL 2.5MG INH SOL UD 3ML (DUONEB)(J7620) NEB SCH ×4 (00:55→19:52)
[2019-04-30] MEDS: CLOTRIMAZOLE 10 MG TROCHE PO SCH ×5 (05:12→20:56)
[2019-04-30 06:00] VITALS: BP 103/53
[2019-04-30 06:40] LABS: HEMATOCRIT 32.1 % (36.0-47.0); HEMOGLOBIN 10.1 g/dl (12.0-15.5); MEAN CORPUSCULAR HEMOGLOBIN 31.8 pg (27.0-33.0); MEAN CORPUSCULAR HGB CONC 31.5 g/dl (32.0-36.5); MEAN CORPUSCULAR VOLUME 100.9 fl (80.0-96.0); PLATELET COUNT, AUTOMATED 226 10^3/uL (150-450); RED BLOOD COUNT 3.18 10^6/uL (4.00-5.40); WHITE BLOOD COUNT 20.2 10^3/uL (4.0-10.0)
[2019-04-30 07:06] LABS: CALCIUM LEVEL 8.7 MG/DL (8.8-10.2); CREATININE FOR GFR 1.08 MG/DL (0.55-1.30); GLOMERULAR FILTRATION RATE 52.2 (>39); POTASSIUM SERUM 3.9 MEQ/L (3.5-5.1)
[2019-04-30] MEDS: MIRALAX *UNIT DOSE* 17GM PACKET PO SCH ×2 (07:59→20:56)
[2019-04-30] MEDS: ENOXAPARIN 30 MG/0.3 ML SYR (J1650) SC SCH (07:59)
[2019-04-30] MEDS: SUCRALFATE SUSP 1GM/10ML UD PO SCH ×4 (08:00→20:56)
[2019-04-30] MEDS: PANTOPRAZOLE 40MG TAB (PROTONIX) PO SCH (08:00)
[2019-04-30] MEDS: predniSONE 20 MG TAB PO SCH (08:00)
[2019-04-30] MEDS: CEFDINIR 300 MG CAP (OMNICEF) PO SCH ×2 (08:00→20:56)
[2019-04-30] MEDS: HumaLOG INSULIN (NovoLOG) PER UNIT SC SCH ×4 (08:01→21:23)
[2019-04-30] MEDS: SIMVASTATIN 40 MG TAB PO SCH (20:56)
[2019-04-30] MEDS: MIRTAZAPINE 7.5MG PER 1/2 TABLET PO SCH (20:56)
[2019-04-30] MEDS: LEVEMIR (INSULIN DETEMIR) 1 UNITS/0.01ML SC SCH (21:23)
[2019-05-01] MEDS: IPRATROPIUM 0.5MG/ALBUTEROL 2.5MG INH SOL UD 3ML (DUONEB)(J7620) NEB SCH ×4 (02:13→18:37)
[2019-05-01] MEDS: CLOTRIMAZOLE 10 MG TROCHE PO SCH ×5 (05:49→21:42)
[2019-05-01 06:00] VITALS: BP 129/60
[2019-05-01 06:39] LABS: HEMATOCRIT 31.6 % (36.0-47.0); MEAN CORPUSCULAR HEMOGLOBIN 32.2 pg (27.0-33.0); MEAN CORPUSCULAR HGB CONC 31.6 g/dl (32.0-36.5); MEAN CORPUSCULAR VOLUME 101.6 fl (80.0-96.0); PLATELET COUNT, AUTOMATED 221 10^3/uL (150-450); RED BLOOD COUNT 3.11 10^6/uL (4.00-5.40); WHITE BLOOD COUNT 20.8 10^3/uL (4.0-10.0)
[2019-05-01 06:55] LABS: CALCIUM LEVEL 8.6 MG/DL (8.8-10.2); CREATININE FOR GFR 1.12 MG/DL (0.55-1.30); GLOMERULAR FILTRATION RATE 50.1 (>39); POTASSIUM SERUM 3.8 MEQ/L (3.5-5.1)
[2019-05-01] MEDS: MIRALAX *UNIT DOSE* 17GM PACKET PO SCH ×2 (08:49→21:42)
[2019-05-01] MEDS: SUCRALFATE SUSP 1GM/10ML UD PO SCH ×4 (08:49→21:42)
[2019-05-01] MEDS: predniSONE 20 MG TAB PO SCH (08:49)
[2019-05-01] MEDS: PANTOPRAZOLE 40MG TAB (PROTONIX) PO SCH (08:49)
[2019-05-01] MEDS: CEFDINIR 300 MG CAP (OMNICEF) PO SCH ×2 (08:49→21:42)
[2019-05-01] MEDS: ENOXAPARIN 30 MG/0.3 ML SYR (J1650) SC SCH (08:50)
[2019-05-01] MEDS: ACETAMINOPHEN 500 MG TAB PO PRN (08:50)
[2019-05-01] MEDS: HumaLOG INSULIN (NovoLOG) PER UNIT SC SCH ×4 (08:50→21:43)
[2019-05-01] MEDS: SIMVASTATIN 40 MG TAB PO SCH (21:41)
[2019-05-01] MEDS: MIRTAZAPINE 7.5MG PER 1/2 TABLET PO SCH (21:42)
[2019-05-01] MEDS: LEVEMIR (INSULIN DETEMIR) 1 UNITS/0.01ML SC SCH (21:43)
[2019-05-02] MEDS: IPRATROPIUM 0.5MG/ALBUTEROL 2.5MG INH SOL UD 3ML (DUONEB)(J7620) NEB SCH ×4 (01:44→19:48)
[2019-05-02] MEDS: CLOTRIMAZOLE 10 MG TROCHE PO SCH ×5 (05:10→20:14)
[2019-05-02 06:00] VITALS: BP 131/79
[2019-05-02 06:30] LABS: HEMOGLOBIN 9.7 g/dl (12.0-15.5); MEAN CORPUSCULAR HGB CONC 30.3 g/dl (32.0-36.5); MEAN CORPUSCULAR VOLUME 102.2 fl (80.0-96.0); PLATELET COUNT, AUTOMATED 215 10^3/uL (150-450); RED BLOOD COUNT 3.13 10^6/uL (4.00-5.40); WHITE BLOOD COUNT 20.4 10^3/uL (4.0-10.0)
[2019-05-02 06:54] LABS: CALCIUM LEVEL 8.3 MG/DL (8.8-10.2); CREATININE FOR GFR 1.04 MG/DL (0.55-1.30); GLOMERULAR FILTRATION RATE 54.6 (>39); POTASSIUM SERUM 4.5 MEQ/L (3.5-5.1)
[2019-05-02] MEDS: ENOXAPARIN 30 MG/0.3 ML SYR (J1650) SC SCH (10:04)
[2019-05-02] MEDS: HumaLOG INSULIN (NovoLOG) PER UNIT SC SCH ×4 (10:04→20:13)
[2019-05-02] MEDS: predniSONE 20 MG TAB PO SCH (10:04)
[2019-05-02] MEDS: PANTOPRAZOLE 40MG TAB (PROTONIX) PO SCH (10:04)
[2019-05-02] MEDS: CEFDINIR 300 MG CAP (OMNICEF) PO SCH ×2 (10:05→20:14)
[2019-05-02] MEDS: SUCRALFATE SUSP 1GM/10ML UD PO SCH ×4 (10:05→20:12)
[2019-05-02] MEDS: MIRALAX *UNIT DOSE* 17GM PACKET PO SCH ×2 (10:06→20:12)
[2019-05-02] MEDS ORDERED: MAALOX 30 ML SUSP *UDC PO PRN (13:30)
--- NOTE | 2019-05-02 13:34 | IPNPDOC ---
Subjective Date Seen The patient was seen on 05/02/19. Subjective Chief Complaint/HPI burning in throat. still dyspneic Constitutional: Denies: Chills Pulmonary: Reports: Dyspnea; Denies: Pleuritic Chest Pain Cardiovascular: Denies: Chest Pain, Palpitations Gastrointestinal: Denies: Nausea Hematologic: Denies: Bruising Neurological: Denies: Weakness Objective Physical Examination General Exam: Positive: Alert, Cooperative, No Acute Distress ENT Exam: Positive: Atraumatic, Mucous membr. moist/pink, Pharynx Normal Neck Exam: Positive: Supple; Negative: JVD, thyromegaly Chest Exam: Positive: Clear to auscultation, Diminished; Negative: Rales, Rhonchi Heart Exam: Positive: Rate Normal, Regular Rhythm, Normal S1, Normal S2; Negative: Murmurs, Rubs Abdomen Exam: Positive: Normal bowel sounds, Soft; Negative: Tenderness, Hepatospenomegaly Extremity Exam: Positive: Normal pulses; Negative: Clubbing, Cyanosis, Edema Psych Exam: Positive: Mental status NL, Mood NL, Oriented x 3 Assessment /Plan Problems (1) COPD exacerbation Status: Acute Response to Treatment: Improving Problem Text: started diflucan for presumptive thrush; sats between 88-92%. expect exertional dyspnea with noted fibrosis on imaging. Prednisone 40 mg po daily. Continue ceftriaxone. weaned to baseline oxygen needs. adjust prednisone to 20mg starting tomorrow. (2) Diabetes mellitus Status: Acute Problem Text: new onset. Staretd on levemir. Continue RISS. Consider Gabapentin for potential neuropathy in BLE. Attending to review. (3) Depression Status: Chronic Response to Treatment: Stable (4) GERD (gastroesophageal reflux disease) Status: Chronic Response to Treatment: Stable Plan/VTE VTE Prophylaxis Ordered?: Yes (lovenox) VS, I&O, 24H, Fishbone Vital Signs/I&O Vital Signs Date Time Temp Pulse Resp B/P (MAP) Pulse Ox O2 Delivery O2 Flow Rate FiO2 05/02/19 06:00 97.5 80 18 131/79 (96) 92 Nasal Cannula 2.0 I&O- Last 24 Hours up to 6 AM 05/02/19 06:00 Intake Total 1560 ml Output Total 2050 ml Balance -490 ml Laboratory Data 24H LABS Laboratory Tests 2 05/01/19 16:52: Bedside Glucose (Misc Panel) 312H 05/01/19 20:17: Bedside Glucose (Misc Panel) 385H 05/02/19 06:16: Nucleated Red Blood Cells % (auto) 0.0, Anion Gap 5L, Glomerular Filtration Rate 54.6, Calcium Level 8.3L 05/02/19 11:34: Bedside Glucose (Misc Panel) 153H CBC/BMP Laboratory Tests 05/02/19 06:16 Luis Schmidt MD May 02, 2019 13:34
[2019-05-02] MEDS ORDERED: FLUCONAZOLE 100 MG TAB PO ONE (13:45)
[2019-05-02] MEDS: LEVEMIR (INSULIN DETEMIR) 1 UNITS/0.01ML SC SCH (20:13)
[2019-05-02] MEDS: SIMVASTATIN 40 MG TAB PO SCH (20:14)
[2019-05-02] MEDS: MIRTAZAPINE 7.5MG PER 1/2 TABLET PO SCH (20:14)
[2019-05-03] MEDS: IPRATROPIUM 0.5MG/ALBUTEROL 2.5MG INH SOL UD 3ML (DUONEB)(J7620) NEB SCH ×4 (02:29→19:18)
[2019-05-03 06:00] VITALS: BP 112/49
[2019-05-03] MEDS: CLOTRIMAZOLE 10 MG TROCHE PO SCH (06:44)
[2019-05-03 07:02] LABS: HEMATOCRIT 31.3 % (36.0-47.0); HEMOGLOBIN 9.7 g/dl (12.0-15.5); MEAN CORPUSCULAR HEMOGLOBIN 31.5 pg (27.0-33.0); MEAN CORPUSCULAR VOLUME 101.6 fl (80.0-96.0); PLATELET COUNT, AUTOMATED 240 10^3/uL (150-450); RED BLOOD COUNT 3.08 10^6/uL (4.00-5.40); WHITE BLOOD COUNT 21.8 10^3/uL (4.0-10.0)
[2019-05-03 07:32] LABS: BLOOD UREA NITROGEN 20 MG/DL (7-18); CALCIUM LEVEL 8.8 MG/DL (8.8-10.2); CARBON DIOXIDE LEVEL 31 MEQ/L (21-32); CHLORIDE LEVEL 104 MEQ/L (98-107); CREATININE FOR GFR 0.94 MG/DL (0.55-1.30); GLOMERULAR FILTRATION RATE > 60.0 (>39); GLUCOSE, FASTING 181 MG/DL (70-100); POTASSIUM SERUM 4.2 MEQ/L (3.5-5.1); SODIUM LEVEL 141 MEQ/L (136-145)
[2019-05-03] MEDS: HumaLOG INSULIN (NovoLOG) PER UNIT SC SCH ×4 (09:20→20:57)
[2019-05-03] MEDS ORDERED: BISACODYL 10 MG SUPP PR PRN (09:45)
[2019-05-03] MEDS ORDERED: MOM 30ML SUSPENSION UDC PO ONE (09:45)
--- NOTE | 2019-05-03 09:48 | IPNPDOC ---
Subjective Date Seen The patient was seen on 05/03/19. Subjective Chief Complaint/HPI Pt this morning reports that she has not had a BM in the last 4 days, no documented BM since admission. She sam abd pain or bloating. She reports a neb treatment this morning that caused her to cough, she had some sputum which was green produced assoc with this. She denies increased SOB, her breathing is only bothersome with some exertion. She denies fevers or chills. She reports that she is feeling quite well. She has a bed for her a [facility] if she has a BM. General: Denies: Fatigue Constitutional: Denies: Chills, Fever ENT: Denies: Head Aches Pulmonary: Reports: Dyspnea, Cough Cardiovascular: Denies: Chest Pain, Palpitations Gastrointestinal: Denies: Nausea, Vomiting, Abdominal Pain, Diarrhea Neurological: Denies: Weakness Psych: Reports: Mood Normal Objective Physical Examination General Exam: Positive: Alert, Cooperative, No Acute Distress Neck Exam: Positive: Supple; Negative: JVD, thyromegaly Chest Exam: Positive: Clear to auscultation, Diminished; Negative: Rales, Rhonchi Heart Exam: Positive: Rate Normal, Regular Rhythm, Normal S1, Normal S2; Negative: Murmurs, Rubs Abdomen Exam: Positive: Normal bowel sounds, Soft; Negative: Tenderness, Hepatospenomegaly Extremity Exam: Positive: Normal pulses; Negative: Clubbing, Cyanosis, Edema Psych Exam: Positive: Mental status NL, Mood NL, Oriented x 3 Assessment /Plan Problems (1) Constipation Status: Acute Response to Treatment: Stable Discussed With: Nurse, Patient Problem Specific Plan: Monitor Clinically, Repeat Labs Problem Text: Bowel care regimen adjusted, if she has BM, plan to transfer to [facility]. (2) COPD exacerbation Status: Resolved Response to Treatment: Improving Problem Specific Plan: Monitor Clinically Problem Text: 05/03 will repeat CXR today, sputum culture ordered, this could be addressed further at [facility] if appropriate as she has no other clinical symptoms. 05/02 started diflucan for presumptive thrush; sats between 88-92%. expect exertional dyspnea with noted fibrosis on imaging. Prednisone 40 mg po daily. C ontinue ceftriaxone. weaned to baseline oxygen needs. adjust prednisone to 20mg starting tomorrow. (3) Diabetes mellitus Status: Acute Problem Text: new onset. Staretd on levemir. Continue RISS. Consider Gabapentin for potential neuropathy in BLE. Attending to review. (4) Depression Status: Chronic Response to Treatment: Stable (5) GERD (gastroesophageal reflux disease) Status: Chronic Response to Treatment: Stable Plan/VTE VTE Prophylaxis Ordered?: Yes (lovenox) VS, I&O, 24H, Fishbone Vital Signs/I&O Vital Signs Date Time Temp Pulse Resp B/P (MAP) Pulse Ox O2 Delivery O2 Flow Rate FiO2 05/03/19 06:00 98.8 89 17 112/49 (70) 98 Nasal Cannula 05/02/19 20:00 2.0 I&O- Last 24 Hours up to 6 AM 05/03/19 06:00 Intake Total 760 ml Output Total 1500 ml Balance -740 ml Laboratory Data 24H LABS Laboratory Tests 2 05/02/19 11:34: Bedside Glucose (Misc Panel) 153H 05/02/19 16:15: Bedside Glucose (Misc Panel) 242H 05/02/19 19:20: Bedside Glucose (Misc Panel) 411H 05/03/19 06:36: Nucleated Red Blood Cells % (auto) 0.0, Anion Gap 6L, Glomerular Filtration Rate > 60.0, Calcium Level 8.8 CBC/BMP Laboratory Tests 05/03/19 06:36 CORINE AHUMADA PA-C May 03, 2019 09:48
[2019-05-03] MEDS: ENOXAPARIN 30 MG/0.3 ML SYR (J1650) SC SCH (10:42)
[2019-05-03] MEDS: SUCRALFATE SUSP 1GM/10ML UD PO SCH ×4 (10:43→20:56)
[2019-05-03] MEDS: predniSONE 20 MG TAB PO SCH (10:43)
[2019-05-03] MEDS: PANTOPRAZOLE 40MG TAB (PROTONIX) PO SCH (10:43)
[2019-05-03] MEDS: MIRALAX *UNIT DOSE* 17GM PACKET PO SCH ×2 (10:43→20:57)
[2019-05-03] MEDS: FLUCONAZOLE 100 MG TAB PO SCH (10:43)
[2019-05-03] MEDS: CEFDINIR 300 MG CAP (OMNICEF) PO SCH (10:43)
--- NOTE | 2019-05-03 11:18 | REP ---
CHEST, TWO VIEWS: Two views of the chest performed and compared to a prior study of 04/26/2019. Significant fibrotic changes of the lung bases have not definitely changed. Subtle superimposed acute infiltrate in the lung bases could easily be obscured. The heart and mediastinum are unchanged. Metallic clips are again seen in the right hilar region. There is no evidence of prior kyphoplasty at several levels. There is osteopenia with multiple stable compression deformities of the thoracic vertebral bodies. IMPRESSION: Stable chronic changes. Electronically Signed by Dominik Bernal MD 05/03/2019 07:20 P
[2019-05-03 14:00] VITALS: BP 109/51
[2019-05-03] MEDS: SIMVASTATIN 40 MG TAB PO SCH (20:57)
[2019-05-03] MEDS: MIRTAZAPINE 7.5MG PER 1/2 TABLET PO SCH (20:57)
[2019-05-03] MEDS: LEVEMIR (INSULIN DETEMIR) 1 UNITS/0.01ML SC SCH (20:57)
[2019-05-04] MEDS: IPRATROPIUM 0.5MG/ALBUTEROL 2.5MG INH SOL UD 3ML (DUONEB)(J7620) NEB SCH ×2 (01:38→07:53)
[2019-05-04 06:00] VITALS: BP 136/79
[2019-05-04] MEDS: SUCRALFATE SUSP 1GM/10ML UD PO SCH (08:06)
[2019-05-04] MEDS: HumaLOG INSULIN (NovoLOG) PER UNIT SC SCH (08:11)
[2019-05-04] MEDS: predniSONE 20 MG TAB PO SCH (08:11)
[2019-05-04] MEDS: ENOXAPARIN 30 MG/0.3 ML SYR (J1650) SC SCH (08:11)
[2019-05-04] MEDS: PANTOPRAZOLE 40MG TAB (PROTONIX) PO SCH (08:11)
[2019-05-04] MEDS: FLUCONAZOLE 100 MG TAB PO SCH (08:11)
[2019-05-04] MEDS: MIRALAX *UNIT DOSE* 17GM PACKET PO SCH (08:11)
[2019-05-04] MEDS ORDERED: INSUHUMDS SC ×2 (08:23)
[2019-05-04] MEDS ORDERED: MYLASSUD PO (08:23)
[2019-05-04] MEDS ORDERED: PEG1POW PO (08:23)
[2019-05-04] MEDS ORDERED: INSUDET SC (08:23)
[2019-05-04] MEDS ORDERED: PRED20TA PO (08:23)
[2019-05-04] MEDS ORDERED: SUCR10SS PO (08:23)
[2019-05-04] MEDS ORDERED: REME15TA PO (08:23)
[2019-05-04] MEDS ORDERED: IPRA0.00 NEB ×2 (08:23)
[2019-05-04] MEDS ORDERED: PANT40TA3 PO (08:23)
[2019-05-04] MEDS ORDERED: SIMV40TA20 PO (08:23)
[2019-05-04] MEDS ORDERED: BISA10SU PR (08:23)
--- NOTE | 2019-05-04 17:59 | DSES ---
DATE OF ADMISSION: 04/26/2019 DATE OF DISCHARGE: 05/04/2019 PRIMARY CARE PROVIDER: Dr. Austyn Carvajal ATTENDING PHYSICIAN: Dr. Luis Schmidt HISTORY OF PRESENT ILLNESS: This is a 78-year-old female who was brought in to her primary care provider (PCP) office for worsening symptoms secondary to her chronic obstructive pulmonary disease (COPD). She had failed outpatient treatment and was subsequently a direct admission from her primary care office. HOSPITAL COURSE: The patient was placed on IV steroids. The patient's pulmonary status continued to improve and she returned to her baseline use of oxygen 2-3 liters nasal cannula. The patient has been showing some significant debility and physical limitations at home. The daughter was concerned and has the inability to care for her 10/11. It was deemed between physical therapy, patient and family services, primary care provider, the patient and daughter that she will progress to [facility] for her assistance and long-term care. This will initially be an attempt at rehabilitation with potential for long-term care placement. The patient was found to have significant hyperglycemia on admission with a blood sugar over 600. She was placed on a regular insulin sliding scale and started on Levemir that has been slowly titrated. Sugars do remain elevated and she will need to continue with titration and a sliding scale while at [facility]. PHYSICAL EXAMINATION: VITAL SIGNS: Stable. She is afebrile. HEENT: Neck is supple without lymphadenopathy or jugular venous distention (JVD). CARDIOVASCULAR: Heart rate and rhythm are regular. PULMONARY: Lungs are diminished throughout with easy respirations. No rhonchi. No wheeze. ABDOMEN: Soft and nontender. Bilateral lower extremities without any edema. GENERAL: The patient is resting comfortably with two liters nasal cannula, saturating at 99%. NEUROLOGIC: The patient is alert and oriented times three. PSYCHIATRIC: Affect is appropriate. Conversation is congruent. ASSESSMENT/DISCHARGE DIAGNOSES: 1. Chronic obstructive pulmonary disease (COPD) exacerbation. 2. New onset diabetes. 3. Physical debility. 4. Chronic steroid dependency. 5. Hyperlipidemia. 6. Depression. PLAN: The patient will be discharged to [facility]. Diet is carbohydrate-consistent. Activity is as tolerated and per physical therapy (PT) recommendations. She will followup with primary care provider (PCP) upon discharge from rehabilitation or new PCP within [facility]. MEDICATIONS: As follows: - Maalox 30 mL by mouth every four hours as needed for heartburn - Dulcolax 10 mg per rectum daily as needed for constipation - Levemir 12 units subcutaneous at bedtime - regular insulin sliding scale subcutaneous before meals and at bedtime - DuoNebs every six hours - DuoNebs every two hours as needed for shortness of breath - Remeron 7.5 mg by mouth at bedtime - pantoprazole sodium 40 mg by mouth daily - polyethylene glycol one packet by mouth twice a day - prednisone 20 mg by mouth daily, THIS WILL NEED TO BE TAPERED - simvastatin 40 mg by mouth at bedtime - Carafate 1 gram by mouth before meals and at bedtime - Tylenol 500 mg tablet by mouth every four hours as needed for pain - albuterol sulfate via nebulizer every four hours as needed for shortness of breath - albuterol HFA two puffs every four hours as needed for shortness of breath - Colace 100 mg by mouth at bedtime - Slow-Mag 71.5 mg tablet one tablet by mouth daily - Biotene as needed for dry mouth - Incruse Ellipta 62.5 mcg one puff daily The patient is discharged in stable and satisfactory condition with no further questions at the time of discharge.
== END 2019-05-04 11:40 | DRG 191 ==
LOC: M MSPAV 11:02
PROVIDERS: ADMIT Family Medicine; ATTEND Family Medicine
DX: J44.1 Chronic obstructive pulmonary disease with (acute) exacerbation (principal); B37.0 Candidal stomatitis; E11.65 Type 2 diabetes mellitus with hyperglycemia; F43.21 Adjustment disorder with depressed mood; E78.2 Mixed hyperlipidemia; K21.9 Gastro-esophageal reflux disease without esophagitis; Z88.6 Allergy status to analgesic agent; Z66 Do not resuscitate; D72.89 Other specified disorders of white blood cells; G47.9 Sleep disorder, unspecified; E11.40 Type 2 diabetes mellitus with diabetic neuropathy, unspecified; K59.00 Constipation, unspecified; Z72.3 Lack of physical exercise; Z79.899 Other long term (current) drug therapy; I10 Essential (primary) hypertension; Z85.118 Personal history of other malignant neoplasm of bronchus and lung; Z90.2 Acquired absence of lung [part of]; M81.0 Age-related osteoporosis without current pathological fracture; Z87.891 Personal history of nicotine dependence; J84.10 Pulmonary fibrosis, unspecified; E55.9 Vitamin D deficiency, unspecified; Z98.41 Cataract extraction status, right eye; Z98.42 Cataract extraction status, left eye; Z88.8 Allergy status to other drugs, medicaments and biological substances; Z78.9 Other specified health status; J40 Bronchitis, not specified as acute or chronic; Z79.52 Long term (current) use of systemic steroids

== ENCOUNTER 2019-05-28 11:13 | Inpatient (IN) | payer MEDICARE ==
[~2019-05-28] VITALS: Ht 142.2 cm; Wt 49.5 kg
[2019-05-28] MEDS: PANTOPRAZOLE 40MG INJ (PROTONIX) (C9113) IV SCH (09:00)
[~2019-05-28 11:13] MED LIST changes: +ACET-683 PO; +ALBU83IN INH; +BIOTLIQ9 MT; +BISA10SU PR; +INSUDET SC; +INSUHUMDS SC; +IPRA0.00 NEB; +MM S100C PO; +MYLASSUD PO; +OMEP40CA97 PO; +PANT40TA3 PO; +PEG1POW PO; +PRED10TA2 PO; +PRED20TA PO; +REME15TA PO; +SIMV40TA20 PO; +SLOWTAB2 PO; +SUCR1ORA2 PO
[2019-05-28 11:56] LABS: BASO # 0.1 10^3/uL (0.0-0.2); BASO % 0.4 % (0.0-1.0); EOS % 0.1 % (0.0-3.0); HEMATOCRIT 29.3 % (36.0-47.0); HEMOGLOBIN 8.8 g/dl (12.0-15.5); LYMPH # 1.2 10^3/uL (1.5-5.0); LYMPH % 6.3 % (24.0-44.0); MEAN CORPUSCULAR HEMOGLOBIN 30.8 pg (27.0-33.0); MEAN CORPUSCULAR VOLUME 102.4 fl (80.0-96.0); MONO # 1.3 10^3/uL (0.0-0.8); NEUTROPHILS # 15.7 10^3/uL (1.5-8.5); NEUTROPHILS % 82.2 % (36.0-66.0); PLATELET COUNT, AUTOMATED 275 10^3/uL (150-450); RED BLOOD COUNT 2.86 10^6/uL (4.00-5.40); WHITE BLOOD COUNT 19.1 10^3/uL (4.0-10.0)
--- NOTE | 2019-05-28 12:04 | REP ---
Clinical: Fall. Findings: Age-related atrophy and microvascular ischemic changes are appreciated. The ventricles and sulci are symmetric. Bernal-white differentiation is maintained. There is no evidence for acute intracranial hemorrhage, mass/mass effect, pathology or infarction. No extra-axial fluid collection. Calvarium is intact. Paranasal sinuses and mastoid air cells are clear. Impression: Age related atrophy and microvascular ischemic changes. No acute intracranial hemorrhage, infarction, or mass/mass effect. Electronically Signed by Alfonso Bartlett MD 05/28/2019 11:55 A
--- NOTE | 2019-05-28 12:11 | REP ---
Clinical: Trauma. Fall. Technique: Axial noncontrast images from the skull base to the thoracic inlet with coronal and sagittal re-formations. Findings: The there is a nondisplaced fracture involving the midline posterior arch at C6 with subtle nondisplaced fracture extending to the spinous process. Remainder of the C6 vertebral body appears intact. Age-related osteopenia and moderate multilevel degenerative spondylosis noted. Paravertebral soft tissues are unremarkable. The Impression: Subtle nondisplaced fracture involving the midline posterior arch and spinous process of C6. The fracture is likely stable and there is no evidence for spondylolisthesis. Electronically Signed by Alfonso Bartlett MD 05/28/2019 12:02 P
[2019-05-28 12:29] LABS: CALCIUM LEVEL 8.5 MG/DL (8.8-10.2); CK-MB VALUE MASS 7.9 NG/ML (<3.6); CREATININE FOR GFR 1.28 MG/DL (0.55-1.30); GLOMERULAR FILTRATION RATE 42.9 (>39); MB/CK RELATIVE INDEX 4.57 (< OR =4); POTASSIUM SERUM 4.3 MEQ/L (3.5-5.1); TROPONIN I 1.85 NG/ML (< 0.10)
--- NOTE | 2019-05-28 12:35 | REP ---
Clinical: Trauma. Fall. Technique: Internal and external rotation views of the right shoulder. Findings: Osteopenia and age-related degenerative changes are appreciated. No acute fracture or dislocation identified. Subacromial space is normal. Impression: Osteopenia and degenerative changes. No obvious acute fracture. Electronically Signed by Alfonso Bartlett MD 05/28/2019 12:27 P
[2019-05-28] MEDS ORDERED: NS 500 ML IV ONE (12:45)
[2019-05-28] MEDS ORDERED: ONDANSETRON 4MG/2ML VIAL (J2405) IV ONE (12:45)
[2019-05-28] MEDS ORDERED: ISOVUE-370 76% 100ML VIAL (Q9967) As Ordered ONE (12:50)
[2019-05-28 12:59] LABS: INR 1.39; PROTHROMBIN TIME 16.8 SECONDS (11.8-14.0)
[2019-05-28 13:00] LABS: PARTIAL THROMBOPLASTIN TIME 37.2 SECONDS (25.0-38.4)
[2019-05-28] MEDS ORDERED: PIPERACILLIN/TAZOBACTAM SOD 4.5 GM in D5W MINI-BAG PLUS 50 ML IV ONE (13:00)
--- NOTE | 2019-05-28 13:05 | REP ---
Clinical: Trauma. Comparison: 05/03/2019. Findings: Mediastinum and cardiac silhouette are stable. Lung pichardo demonstrate diffuse advanced fibrosis and interstitial disease similar to prior examination. Skeletal structures demonstrate osteopenia and degenerative changes without obvious acute injury. Impression: Chronic stable changes. Electronically Signed by Alfonso Bartlett MD 05/28/2019 12:57 P
--- NOTE | 2019-05-28 13:34 | REP ---
Clinical: Trauma. Technique: Axial contrast enhanced images from the thoracic inlet to the upper abdomen with coronal and sagittal re-formations oozing 100 ml Isovue 370 intravenous contrast material. Findings: Lung pichardo demonstrate advanced emphysematous changes, chronic interstitial changes and fibrosis/scarring. No obvious acute consolidation, effusion, or pneumothorax. Mediastinum demonstrates atherosclerotic changes to the thoracic aorta and coronary arteries without aortic aneurysm or dissection. No cardiomegaly or pericardial effusion. The osseous structures demonstrate osteopenia and degenerative changes along with chronic-appearing multilevel compression deformities and evidence for multilevel vertebroplasty. No definite acute fracture identified. Limited upper abdomen demonstrates innumerable hepatic metastatic lesions with mild prominence to the bilateral adrenal glands. Impression: 1. Chronic-appearing changes throughout the lung pichardo without obvious acute mediastinal or pleuroparenchymal trauma/injury. 2. Innumerable hepatic metastatic lesions. Electronically Signed by Alfonso Bartlett MD 05/28/2019 01:25 P
--- NOTE | 2019-05-28 13:38 | REP ---
Clinical: Trauma. Technique: Axial contrast enhanced images from the lung bases to the pubic symphysis using 100 ml Isovue 370 intravenous contrast material with coronal and sagittal re-formations. Findings: Innumerable hepatic lesions consistent with metastatic disease measuring up to approximately 3 cm diameter. Splenic hypodensities are also noted and may represent splenic metastases. Pancreas is unremarkable. Evidence of prior cholecystectomy. The adrenal glands demonstrate mild heterogeneous enlargement which is nonspecific. The kidneys demonstrate age-related atrophic changes without focal abnormality. The enteric system is without obstruction or acute inflammatory process. Pelvis demonstrates normal bladder and evidence for prior hysterectomy. No ascites. No free air. No obvious intraperitoneal or retroperitoneal adenopathy. Musculoskeletal structures demonstrate osteopenia and degenerative changes along with multilevel chronic-appearing compression deformities and evidence for multilevel vertebroplasty. Scattered large areas may also represent skeletal metastases. Atherosclerotic disease to the aorta noted without aneurysm. Impression: 1. Innumerable hepatic and possible splenic metastases. 2. Skeletal structures demonstrate chronic compression deformities, and osteopenia/lytic changes which may reflect degenerative disease and/or osseous metastases. Electronically Signed by Alfonso Bartlett MD 05/28/2019 01:30 P
[2019-05-28] MEDS ORDERED: NS 250 ML IV ONE (14:00)
[2019-05-28] MEDS ORDERED: MIRT1TAB PO (14:06)
[2019-05-28] MEDS ORDERED: IPRA0.00 INH ×2 (14:06)
[2019-05-28] MEDS ORDERED: BISA10SU4 PR (14:06)
[2019-05-28] MEDS ORDERED: SUCR1ORA PO (14:06)
[2019-05-28] MEDS ORDERED: INSUDET SC ×2 (14:06)
[2019-05-28] MEDS ORDERED: OMEP1CAP73 PO (14:06)
[2019-05-28] MEDS ORDERED: SIMV40TA20 PO (14:06)
[2019-05-28] MEDS ORDERED: PRED10TA2 PO (14:06)
[2019-05-28] MEDS ORDERED: BACT800T5 PO (14:06)
[2019-05-28] MEDS ORDERED: POLY1POW38 PO (14:07)
[2019-05-28] MEDS ORDERED: ALBUTEROL 90 MCG/ACT 8GM HFA INHALER INH PRN (15:15)
[2019-05-28] MEDS ORDERED: ACETAMINOPHEN 500 MG TAB PO PRN (15:15)
[2019-05-28] MEDS ORDERED: ALBUTEROL SULFATE 2.5 MG/0.5 ML INH NEB SOLN INH PRN (15:15)
[2019-05-28] MEDS ORDERED: BISACODYL 10 MG SUPP PR PRN (15:15)
[2019-05-28] MEDS ORDERED: IBUPROFEN 600 MG TAB PO PRN (15:30)
[2019-05-28] MEDS ORDERED: GLUCAGON FOR INJ 1 MG VIAL (J1610) SC PRN (15:30)
[2019-05-28] MEDS ORDERED: GLUCOSE 4 GM CHEW TABLET PO PRN (15:30)
[2019-05-28] MEDS ORDERED: DEXTROSE 50% 50 ML SYRINGE IV PRN (15:30)
[2019-05-28] MEDS ORDERED: NORCO, ANEXSIA 5/325MG TABLET (HYDROcodone/ACETAMINOPHEN) PO PRN (15:30)
[2019-05-28] MEDS: NORCO, ANEXSIA 5/325MG TABLET (HYDROcodone/ACETAMINOPHEN) PO PRN (15:54)
[2019-05-28] MEDS: HYDROCORTISONE 100 MG/2 ML VIAL (J1720 PER 1) IV SCH (16:00)
[2019-05-28 16:20] VITALS: BP 82/46
[2019-05-28] MEDS ORDERED: VANCOMYCIN HCL 1,000 MG, VIAL MATE ADAPTER 1 EACH in D5W 250 ML IV ONE (17:00)
[2019-05-28] MEDS: SUCRALFATE SUSP 1GM/10ML UD PO SCH ×2 (17:50→20:04)
--- NOTE | 2019-05-28 17:50 | ECGEPIP ---
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
[2019-05-28] MEDS: HumaLOG INSULIN (NovoLOG) PER UNIT SC SCH (17:51)
--- NOTE | 2019-05-28 17:52 | ECGEPIP ---
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
[2019-05-28 18:00] VITALS: BP 80/42
--- NOTE | 2019-05-28 18:53 | HPE ---
DATE OF ADMISSION: 05/28/2019 CHIEF COMPLAINT: Mechanical fall. HISTORY OF THE PRESENT ILLNESS: Mrs. Blunt is a 78-year-old female whose past medical history is significant for recent admission to [facility] for chronic obstructive pulmonary disease (COPD) exacerbation. During her admission, the patient was treated for COPD exacerbation with IV steroids and antibiotic Rocephin. She was discharged from [facility] to [facility] for rehabilitation. The patient completed her rehab and was discharged from [facility] on 05/26/2019. The patient presents today via ambulance after son found the patient on the floor. According to the son, he went to go visit the mother, called the mother from outside the house. After waiting several minutes, the son then called the quarry supervisor open pit to be allowed to enter the building. Upon entering the building, the son found the mother lying on the floor. Mother states that she attempted to get up and open the door; however, she fell and was unable to get up. She denied any loss of consciousness, denied any weakness, simply was unable to get up off the floor. Initial presentation showed the patient was tachycardic with EKG showing sinus tachycardia. Patient has significant leukocytosis of 19.1. Troponin was positive at 1.86. Patient had a BNP of 16,449. Initial workup using CT imaging showed metastatic disease to her liver and spleen, as well as to her bones. 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 CT of the cervical spine was also positive for subtle nondisplaced fracture involving the middle posterior arch and spinous process of C6. These imaging and laboratory evaluations were explained to the patient. After discussion with the patient's family, the patient's family decided to pursue limited intervention with emphasis on comfort care. The patient's Medical Orders for Life-Sustaining Treatment (MOLST) form was updated to reflect DO NOT INTUBATE (DNI), DO NOT RESUSCITATE (DNR) with antibiotics, fluids, blood as necessary. The patient's family decided to NOT make the patient comfort care just yet but to see how the patient progresses. The patient denies chest pain, admits to neck pain with movement, denies abdominal pain, denies any significant weight loss, denies any hemoptysis, denies any blood per rectum, denies any headaches, denies any recent change in vision. Denies any recent travel. Denies a history of mechanical falls but does admit to fall prior to presentation. Her most recent fall lasted for approximately 10 minutes. PAST MEDICAL HISTORY: 1. History of lung cancer, squamous cell carcinoma, status post right upper lobectomy. 2. Hypertension. 3. COPD, on two liters nasal cannula. 4. Osteoporosis. 5. Hyperlipidemia. 6. History of smoking. 7. Pulmonary fibrosis. 8. Diabetes. 9. Vitamin D deficiency. 10. History of abnormal CT. PAST SURGICAL HISTORY: 1. T9 biopsy with kyphoplasty. 2. Right humeral fracture in 2007. 3. Cataract removal. FAMILY HISTORY: Noncontributory due to advanced age. SOCIAL HISTORY: Lives by herself, with son and daughter. They visit to provide help. The patient is a former smoker. Denies alcohol. Denies IV drug use. ALLERGIES: The patient has an allergy to ASPIRIN, RECLAST and CEFTIN. REVIEW OF SYSTEMS: Ten-point review of systems was obtained, and it was negative other than the elements mentioned in the history of the present illness. PHYSICAL EXAMINATION: GENERAL: Alert, pleasant elderly female resting comfortably in bed with nasal cannula in nose. HEENT: Slight tenderness to palpation in patient's neck, range of motion is limited due to neck pain. Oral mucosa is moist with dentures. Pupils are round and reactive to light. LUNGS: Clear to auscultation. HEART: Tachycardic. Regular rate, regular rhythm. No murmur, rubs, or gallops. ABDOMEN: Soft, nontender. HEMATOLOGIC: No bleeding. NEUROLOGIC: Alert, oriented. No focal neurological deficit. PSYCHIATRY: Mood is appropriate. Patient does tend to minimize according to family, and she will not admit to pain. EXTREMITIES: No deformities. Slight bilateral edema. ASSESSMENT: This is a 78-year-old female presenting after a mechanical fall. Laboratory values indicate elevated troponins, also fracture of her C6 spine along with liver metastasis, splenic metastasis and bone metastasis from her lung cancer. All of this was explained to the patient's family. The patient has elected to pursue limited intervention with goal towards fixing reversible problems. They do not want anything invasive or too extensive. They are not ready to make patient comfort care but would like her care to be centered around comfort. PLAN: The patient will be admitted and closely monitored. Pain will be controlled with [place] tabs. She will be started on empiric vancomycin and Zosyn for methicillin-resistant Staphylococcus aureus (MRSA ) and empiric gram positive and negative coverage. Sliding scale insulin for her history of diabetes. Her home medications will be resumed in terms of her inhaler, will hold the patient's atorvastatin for hyperlipidemia, will continue her bowel regimen as well. Due to patient's history of prolonged steroid use, will start the patient on a stress dose of hydrocortisone at 50 mg every 8 hours for a total of 5 days. Oxygen on board with instructions to maintain saturation between 88 and 92. Deep vein thrombosis (DVT) prophylaxis with Lovenox. DISPOSITION: Guarded prognosis due to patient's metastatic disease to liver, spleen and bones. Will continue to reassess the patient and address goal of treatment with patient's family. [facility]
[2019-05-28] MEDS: IPRATROPIUM 0.5MG/ALBUTEROL 2.5MG INH SOL UD 3ML (DUONEB)(J7620) NEB SCH (19:58)
[2019-05-28] MEDS: MIRTAZAPINE 7.5MG PER 1/2 TABLET PO SCH (20:04)
[2019-05-28] MEDS: DOCUSATE SODIUM 100 MG CAP PO SCH (20:04)
[2019-05-28] MEDS: PIPERACILLIN/TAZOBACTAM SOD 2.25 GM in D5W MINI-BAG PLUS 50 ML IV SCH (20:04)
[2019-05-28] MEDS ORDERED: LEVEMIR (INSULIN DETEMIR) 1 UNITS/0.01ML SC SCH (21:00)
[2019-05-28] MEDS ORDERED: HumaLOG INSULIN (NovoLOG) PER UNIT SC SCH (21:00)
[2019-05-28 22:00] VITALS: BP 90/58
[2019-05-29] MEDS: HYDROCORTISONE 100 MG/2 ML VIAL (J1720 PER 1) IV SCH ×2 (00:15→08:14)
[2019-05-29] MEDS: IPRATROPIUM 0.5MG/ALBUTEROL 2.5MG INH SOL UD 3ML (DUONEB)(J7620) NEB SCH ×4 (01:48→19:39)
[2019-05-29] MEDS: PIPERACILLIN/TAZOBACTAM SOD 2.25 GM in D5W MINI-BAG PLUS 50 ML IV SCH ×2 (02:28→08:14)
[2019-05-29 05:00] VITALS: BP 96/53
[2019-05-29 08:07] LABS: HEMOGLOBIN 8.2 g/dl (12.0-15.5); MEAN CORPUSCULAR HEMOGLOBIN 30.7 pg (27.0-33.0); MEAN CORPUSCULAR HGB CONC 30.4 g/dl (32.0-36.5); MEAN CORPUSCULAR VOLUME 101.1 fl (80.0-96.0); PLATELET COUNT, AUTOMATED 284 10^3/uL (150-450); RED BLOOD COUNT 2.67 10^6/uL (4.00-5.40); WHITE BLOOD COUNT 17.6 10^3/uL (4.0-10.0)
[2019-05-29] MEDS: SUCRALFATE SUSP 1GM/10ML UD PO SCH ×4 (08:14→20:54)
[2019-05-29] MEDS: PANTOPRAZOLE 40MG INJ (PROTONIX) (C9113) IV SCH (08:14)
[2019-05-29] MEDS: HumaLOG INSULIN (NovoLOG) PER UNIT SC SCH ×2 (08:25→11:51)
[2019-05-29 08:29] LABS: CALCIUM LEVEL 8.2 MG/DL (8.8-10.2); CREATININE FOR GFR 1.26 MG/DL (0.55-1.30); GLOMERULAR FILTRATION RATE 43.7 (>39); POTASSIUM SERUM 4.3 MEQ/L (3.5-5.1)
[2019-05-29] MEDS ORDERED: ENOXAPARIN 30 MG/0.3 ML SYR (J1650) SC SCH (09:00)
[2019-05-29] MEDS ORDERED: VANCOMYCIN HCL 750 MG, VIAL MATE ADAPTER 1 EACH in D5W 250 ML IV SCH (09:00)
[2019-05-29 10:00] VITALS: BP 108/70
[2019-05-29] MEDS: NORCO, ANEXSIA 5/325MG TABLET (HYDROcodone/ACETAMINOPHEN) PO PRN (10:19)
[2019-05-29 13:24] LABS: TROPONIN I 1.37 NG/ML (< 0.10)
--- NOTE | 2019-05-29 13:41 | IPNPDOC ---
Subjective Date Seen The patient was seen on 05/29/19. Subjective Chief Complaint/HPI I had a long conversation with Ms. Blunt and two of her children. She was pretty clear yesterday that she only wanted limited medical interventions, but it wasn't exactly clear if we are persuing limited CURATIVE treatments or if she prefers limited PALLIATIVE treatment. This is what we discussed today. This was a difficult conversation for her and her children. She struggled to make a decision, but ultimately decided that she was certain that she didn't want "all that stuff done to her" (PCI, invasive bx, possible chemotherapy, orthopedic surgeries). Based on this decision she decided to request palliative care and the family requested a Hospice consultation. Her son and daughter are very concerned about her returning to her home en vironment, because she does not have 24h care and they blame her fall and C6 fx on the fact that there wasn't some one to help her. I explained that Hospice has some resources that they can assist with, but they can not provide 24h care in the patient's home. This would be the family's responsibility. I also explained that there were some other palliative and Hospice options including the Hospice house or being on a palliative service at one of the nursing homes. I made it clear that I don't have all the answers right now, but that they don't have to either. They DO need to start thinking about these things to that when they have the conversation with the Hospice team that they are prepared for some of the questions/options that will come up. General: Denies: Normal Appetite Pulmonary: Denies: Dyspnea, Cough Cardiovascular: Denies: Chest Pain, Palpitations Gastrointestinal: Denies: Nausea, Abdominal Pain Musculoskeletal: Reports: Neck Pain Psych: Reports: Anxiety Objective Physical Examination General Exam: Positive: Alert, Cooperative, No Acute Distress (laying in the bed talking with her son sanaz) Eye Exam: Positive: Conjunctiva & lids normal; Negative: Sclera icteric ENT Exam: Positive: Mucous membr. moist/pink Neck Exam: Positive: Supple, Other (point tenderness over C6 on gentle palpation); Negative: Lymphadenopathy Chest Exam: Positive: Clear to auscultation, Normal air movement Heart Exam: Positive: Rate Normal, Normal S1, Normal S2; Negative: Murmurs Abdomen Exam: Positive: Normal bowel sounds, Soft; Negative: Tenderness Extremity Exam: Negative: Edema Psych Exam: Positive: Mood NL, Oriented x 3 Assessment /Plan Problems (1) C6 cervical fracture Status: Acute Response to Treatment: Uncontrolled Discussed With: Nurse, Patient, Family with Pt Consent Problem Specific Plan: Monitor Clinically Problem Text: She has seen Ortho and they recommend she wear a collar to stabilize the fracture. They were going to apply one, but she declined it saying that it made her more uncomfortable not to be able to move her head. I am concerned that this was a pathologic fx related to mets to the bone, so I'm not sure how well it will heal. At present she will be on pain medication while this fx theoretically tries to heal. (2) NSTEMI (non-ST elevated myocardial infarction) Status: Acute Response to Treatment: Improving Problem Text: Her Tpn I is slowly dropping, but I do think she sustained true myocardial damage during her fall. If the fall was too much for her heart to take without sustaining anoxic injury, I would be very concerned about her undergoing a procedure (e.g. liver bx or C6 spine procedure) without stress testing and she would almost assuredly need PCI. Since she doesn't want any of this it is good that we are moving forward with palliative care. (3) Metastatic cancer to liver Status: Acute Problem Text: It is unclear if these are primary or metastatic. The pattern l ooks more like metastatic. There are also probably bony mets. She doesn't want chemotherapy or other aggressive cancer treatments (she remembers her previous cancer treatments and does not want to go through that again). We are pursuing palliative care for her and I put in a Hospice consultation request. (4) Hard of hearing Status: Chronic Problem Text: She is competent to make her own medical decisions. Her children want to help make things easier for her and tried a couple times to cut her out of the decision-making to help relieve the distress that struggling with serious/existential issues were having on her. I carefully reminded them that these decision are ultimately hers. In order for her to really engage in the decision-making the information has to be presented to her loud enough for her to hear. I encourage everyone interacting with her to remember this. (5) COPD exacerbation Status: Chronic Problem Text: She may be having a slight COPD exacerbation, but was comfortable at the time of my exam. Some of it may be related to her cancer and the fact that she is s/p lobectomy. We will continue to treat her symptomatically. (6) Diabetes mellitus Status: Chronic Problem Text: I changed her to Accu-checks BID with no ISS coverage. We should be called for BGL >300. Plan/VTE VTE Prophylaxis Ordered?: No (palliative care) Plan Anticipated Discharge: Hospice VS, I&O, 24H, Fishbone Vital Signs/I&O Vital Signs Date Time Temp Pulse Resp B/P (MAP) Pulse Ox O2 Delivery O2 Flow Rate FiO2 05/29/19 11:30 16 05/29/19 10:12 4.0 05/29/19 10:00 98.6 113 108/70 (83) 89 Nasal Cannula I&O- Last 24 Hours up to 6 AM 05/29/19 06:00 Intake Total 460 ml Balance 460 ml Laboratory Data 24H LABS Laboratory Tests 2 05/28/19 17:18: Bedside Glucose (Misc Panel) 127H 05/28/19 20:42: Bedside Glucose (Misc Panel) 139H 05/29/19 07:23: Nucleated Red Blood Cells % (auto) 0.7H, Anion Gap 8, Glomerular Filtration Rate 43.7, Calcium Level 8.2L, Troponin I 1.37#H 05/29/19 11:41: Bedside Glucose (Misc Panel) 225H CBC/BMP Laboratory Tests 05/29/19 07:23 Microbiology Microbiology 05/28/19 Respiratory Virus Panel (PCR) (CHASE) - Final, Complete 05/28/19 Blood Culture, Received Pending Jonatan Roca MD May 29, 2019 13:41
[2019-05-29] MEDS ORDERED: ONDANSETRON 4MG/2ML VIAL (J2405) IV PRN (13:45)
[2019-05-29] MEDS ORDERED: MORPHINE 2 MG/ML 1ML VIAL (J2270) IV PRN (13:45)
[2019-05-29 14:00] VITALS: BP 110/68
[2019-05-29] MEDS: LORazepam 2 MG/ML VIAL (J2060) IV PRN (14:42)
[2019-05-29] MEDS: DOCUSATE SODIUM 100 MG CAP PO SCH (20:54)
[2019-05-29] MEDS: MIRTAZAPINE 7.5MG PER 1/2 TABLET PO SCH (20:54)
[2019-05-30] MEDS: IPRATROPIUM 0.5MG/ALBUTEROL 2.5MG INH SOL UD 3ML (DUONEB)(J7620) NEB SCH ×4 (02:59→19:23)
[2019-05-30] MEDS: SUCRALFATE SUSP 1GM/10ML UD PO SCH ×4 (08:21→21:00)
[2019-05-30] MEDS: NORCO, ANEXSIA 5/325MG TABLET (HYDROcodone/ACETAMINOPHEN) PO PRN (09:21)
--- NOTE | 2019-05-30 10:15 | IPNPDOC ---
Subjective Date Seen The patient was seen on 05/30/19. Subjective Chief Complaint/HPI Pt this morning without new concerns. She reports adequate pain control. She really wants to see Dr Carvajal. General: Denies: Fatigue Constitutional: Denies: Chills, Fever Skin: Denies: Rash, Lesions Pulmonary: Denies: Dyspnea, Cough Gastrointestinal: Denies: Nausea, Vomiting Neurological: Denies: Weakness Psych: Reports: Mood Normal Objective Physical Examination General Exam: Positive: Alert, No Acute Distress (laying in the bed talking with her son sanaz) Eye Exam: Negative: Sclera icteric ENT Exam: Positive: Mucous membr. moist/pink Neck Exam: Positive: Supple, Other (point tenderness over C6 on gentle palpation); Negative: Lymphadenopathy Chest Exam: Positive: Clear to auscultation, Normal air movement Heart Exam: Positive: Rate Normal, Normal S1, Normal S2; Negative: Murmurs Abdomen Exam: Positive: Normal bowel sounds, Soft; Negative: Tenderness Extremity Exam: Negative: Edema Psych Exam: Positive: Mood NL, Oriented x 3 Assessment /Plan Problems (1) C6 cervical fracture Status: Acute Response to Treatment: Uncontrolled Discussed With: Nurse, Patient, Family with Pt Consent Problem Specific Plan: Monitor Clinically Problem Text: 05/30 Pt cont to decline collar, reports adequate pain control. Plans to meet with Hospice. 05/29 She has seen Ortho and they recommend she wear a collar to stabilize the fracture. They were going to apply one, but she declined it saying that it made her more uncomfortable not to be able to move her head. I am concerned that this was a pathologic fx related to mets to the bone, so I'm not sure how well it will heal. At present she will be on pain medication while this fx theoretically tries to heal. (2) NSTEMI (non-ST elevated myocardial infarction) Status: Acute Response to Treatment: Improving Problem Text: 05/29 Her Tpn I is slowly dropping, but I do think she sustained true myocardial damage during her fall. If the fall was too much for her heart to take without sustaining anoxic injury, I would be very concerned about her undergoing a procedure (e.g. liver bx or C6 spine procedure) without stress testing and she would almost assuredly need PCI. Since she doesn't want any of this it is good that we are moving forward with palliative care. (3) Metastatic cancer to liver Status: Acute Problem Text: It is unclear if these are primary or metastatic. The pattern looks more like metastatic. There are also probably bony mets. She doesn't want chemotherapy or other aggressive cancer treatments (she remembers her previous cancer treatments and does not want to go through that again). We are pursuing palliative care for her and I put in a Hospice consultation request. (4) Hard of hearing Status: Chronic Problem Text: She is competent to make her own medical decisions. Her children want to help make things easier for her and tried a couple times to cut her out of the decision-making to help relieve the distress that struggling with se rious/existential issues were having on her. I carefully reminded them that these decision are ultimately hers. In order for her to really engage in the decision-making the information has to be presented to her loud enough for her to hear. I encourage everyone interacting with her to remember this. (5) COPD exacerbation Status: Chronic Problem Text: She may be having a slight COPD exacerbation, but was comfortable at the time of my exam. Some of it may be related to her cancer and the fact that she is s/p lobectomy. We will continue to treat her symptomatically. (6) Diabetes mellitus Status: Chronic Problem Text: 05/30 monitor, if they remain consistently stable will plan to DC tomorrow. 05/29 I changed her to Accu-checks BID with no ISS coverage. We should be called for BGL >300. Plan/VTE VTE Prophylaxis Ordered?: No (palliative care) Plan Anticipated Discharge: Hospice VS, I&O, 24H, Fishbone Vital Signs/I&O Vital Signs Date Time Temp Pulse Resp B/P (MAP) Pulse Ox O2 Delivery O2 Flow Rate FiO2 05/30/19 09:21 16 05/29/19 20:04 4.0 05/29/19 14:00 98.0 102 110/68 (82) 90 Nasal Cannula I&O- Last 24 Hours up to 6 AM 05/30/19 05:59 Intake Total 850 ml Output Total 0 ml Balance 850 ml Laboratory Data 24H LABS Laboratory Tests 2 05/29/19 11:41: Bedside Glucose (Misc Panel) 225H 05/29/19 16:31: Bedside Glucose (Misc Panel) 120H Microbiology Microbiology 05/28/19 Respiratory Virus Panel (PCR) (CHASE) - Final, Complete 05/28/19 Blood Culture - Preliminary, Resulted No growth after 24 hours . All specim... CORINE AHUMADA PA-C May 30, 2019 10:15
[2019-05-30] MEDS: IPRATROPIUM 0.5MG/ALBUTEROL 2.5MG INH SOL UD 3ML (DUONEB)(J7620) NEB PRN (17:11)
[2019-05-30] MEDS: LORazepam 2 MG/ML VIAL (J2060) IV PRN (19:19)
[2019-05-30] MEDS: MIRTAZAPINE 7.5MG PER 1/2 TABLET PO SCH (21:00)
[2019-05-30] MEDS: DOCUSATE SODIUM 100 MG CAP PO SCH (21:00)
[2019-05-31] MEDS: IPRATROPIUM 0.5MG/ALBUTEROL 2.5MG INH SOL UD 3ML (DUONEB)(J7620) NEB SCH ×4 (01:42→20:00)
[2019-05-31] MEDS: SUCRALFATE SUSP 1GM/10ML UD PO SCH ×4 (07:30→20:38)
--- NOTE | 2019-05-31 12:32 | IPN ---
DATE: 05/31/2019 Ciarra is seen on [address]. I met with her son, his and her sister, as well as with the patient. She has what looks like to be advanced metastatic disease with significant clinical decline in a very short period of time. I saw her on 05/09/2019. She had normal liver function tests and though she looked chronically ill, she is dramatically worse now. The patient is having pain both abdominal and in her neck. The family has been declining morphine because I think they are concerned about the stigma associated with this. Ciarra does indicate 7/10 pain. I did not examine her, we just spoke. IMPRESSION: End of life planning. I met with the family. I had a long xavi discussion. They agreed to allow her to access some morphine for relief of pain and anxiety. We will ask hospice to see the patient. The family would like hospice residence as an option, though at the rate she is declining she might not survive long enough for transfer there. I reordered the morphine as an oral concentrate and they did agree to let her have this for relief of pain and anxiety.
[2019-05-31] MEDS: MORPHINE 10MG/0.5ML ORAL CONCENTRATE SOLUTION U/D SL PRN ×2 (14:00→16:24)
[2019-05-31] MEDS: IPRATROPIUM 0.5MG/ALBUTEROL 2.5MG INH SOL UD 3ML (DUONEB)(J7620) NEB PRN (17:27)
[2019-05-31] MEDS ORDERED: ACETAMINOPHEN 650 MG SUPP PR PRN (17:45)
[2019-05-31] MEDS: LORazepam 2 MG/ML VIAL (J2060) IV PRN (18:12)
[2019-05-31] MEDS: DOCUSATE SODIUM 100 MG CAP PO SCH (20:38)
[2019-05-31] MEDS: MIRTAZAPINE 7.5MG PER 1/2 TABLET PO SCH (20:38)
[2019-06-01] MEDS: IPRATROPIUM 0.5MG/ALBUTEROL 2.5MG INH SOL UD 3ML (DUONEB)(J7620) NEB SCH ×4 (02:00→20:00)
[2019-06-01] MEDS: MORPHINE 10MG/0.5ML ORAL CONCENTRATE SOLUTION U/D SL PRN ×6 (03:47→19:17)
[2019-06-01] MEDS: LORazepam 2 MG/ML VIAL (J2060) IV PRN ×2 (06:33→08:48)
[2019-06-01] MEDS: SUCRALFATE SUSP 1GM/10ML UD PO SCH ×4 (07:30→20:05)
--- NOTE | 2019-06-01 10:31 | IPNPDOC ---
Subjective Date Seen The patient was seen on 06/01/19. Subjective Chief Complaint/HPI C6 fracture, COPD,mets lung Ca Events since last encounter Family has opted for hospice and is currently waiting for a bed in hospice residence. Patient getting washed up while i was in the room. Appeared comfo rtable. General: Reports: ROS Unobtainable Objective Physical Examination General Exam: Positive: No Acute Distress; Negative: Alert Eye Exam: Negative: Sclera icteric ENT Exam: Positive: Mucous membr. moist/pink Neck Exam: Positive: Supple, Other (point tenderness over C6 on gentle palpation); Negative: Lymphadenopathy Chest Exam: Positive: Clear to auscultation, Normal air movement Heart Exam: Positive: Rate Normal, Normal S1, Normal S2; Negative: Murmurs Abdomen Exam: Positive: Normal bowel sounds, Soft; Negative: Tenderness Extremity Exam: Negative: Edema Psych Exam: Positive: Mood NL, Oriented x 3 Assessment /Plan Problems (1) Comfort measures only status Problem Text: continue with medications for comfort. Hospice residence be is pending. PFS involved and actively monitoring bed situation at hospice. (2) Metastatic cancer to liver Status: Acute Problem Text: It is unclear if these are primary or metastatic. The pattern looks more like metastatic. There are also probably bony mets. She doesn't want chemotherapy or other aggressive cancer treatments (she remembers her previous cancer treatments and does not want to go through that again). We are pursuing palliative care for her and I put in a Hospice consultation request. (3) C6 cervical fracture Status: Acute Response to Treatment: Uncontrolled Discussed With: Nurse, Patient, Family with Pt Consent Problem Specific Plan: Monitor Clinically Problem Text: 05/30 Pt cont to decline collar, reports adequate pain control. Plans to meet with Hospice. 05/29 She has seen Ortho and they recommend she wear a collar to stabilize the fracture. They were going to apply one, but she declined it saying that it made her more uncomfortable not to be able to move her head. I am concerned that this was a pathologic fx related to mets to the bone, so I'm not sure how well it will heal. At present she will be on pain medication while this fx theoretically tries to heal. (4) NSTEMI (non-ST elevated myocardial infarction) Status: Acute Response to Treatment: Improving Problem Text: 05/29 Her Tpn I is slowly dropping, but I do think she sustained true myocardial damage during her fall. If the fall was too much for her heart to take without sustaining anoxic injury, I would be very concerned about her undergoing a procedure (e.g. liver bx or C6 spine procedure) without stress testing and she would almost assuredly need PCI. Since she doesn't want any of this it is good that we are moving forward with palliative care. (5) Hard of hearing Status: Chronic Problem Text: She is competent to make her own medical decisions. Her children want to help make things easier for her and tried a couple times to cut her out of the decision-making to help relieve the distress that struggling with serious/existential issues were having on her. I carefully reminded them that these decision are ultimately hers. In order for her to really engage in the decision-making the information has to be presented to her loud enough for her to hear. I encourage everyone interacting with her to remember this. (6) COPD exacerbation Status: Chronic Problem Text: She may be having a slight COPD exacerbation, but was comfortable at the time of my exam. Some of it may be related to her cancer and the fact that she is s/p lobectomy. We will continue to treat her symptomatically. (7) Diabetes mellitus Status: Chronic Problem Text: 05/30 monitor, if they remain consistently stable will plan to DC tomorrow. 05/29 I changed her to Accu-checks BID with no ISS coverage. We should be called for BGL >300. Plan/VTE VTE Prophylaxis Ordered?: No (palliative care) Plan Anticipated Discharge: Hospice VS, I&O, 24H, Fishbone Vital Signs/I&O Vital Signs Date Time Temp Pulse Resp B/P (MAP) Pulse Ox O2 Delivery O2 Flow Rate FiO2 06/01/19 08:49 18 Nasal Cannula 4.0 05/30/19 22:00 99.2 05/29/19 14:00 102 110/68 (82) 90 I&O- Last 24 Hours up to 6 AM 06/01/19 06:00 Intake Total 0 ml Output Total 825 ml Balance -825 ml Laboratory Data Microbiology Microbiology 05/28/19 Respiratory Virus Panel (PCR) (CHASE) - Final, Complete 05/28/19 Blood Culture - Preliminary, Resulted No Growth after 72 hours. All specime... Mulu Anderson [employer] Jun 01, 2019 10:31
[2019-06-01] MEDS ORDERED: LORazepam 1 MG TAB SL PRN (12:45)
[2019-06-01] MEDS: LORazepam 2 MG TAB SL PRN ×3 (14:57→19:16)
[2019-06-01] MEDS: DOCUSATE SODIUM 100 MG CAP PO SCH (20:05)
[2019-06-01] MEDS: MIRTAZAPINE 7.5MG PER 1/2 TABLET PO SCH (20:05)
--- NOTE | 2019-06-02 18:22 | DSES ---
DATE OF ADMISSION: 05/28/2019 DATE OF DISCHARGE/EXPIRATION: 06/01/2019 PRINCIPAL DIAGNOSIS: Liver failure secondary to widespread liver metastases from unknown primary. SECONDARY DIAGNOSES: C6 cervical fracture after a fall at home, non-ST elevation myocardial infarction, exacerbation of COPD secondary to bronchitis, type 2 diabetes. HISTORY: Ciarra Blunt was found on the floor, she fell and had a C6 cervical fracture, details in history of physical examination. HOSPITAL COURSE: She was admitted to a medical bed. She was placed in a collar, stabilized the fracture, was seen by orthopedics, the patient declined wearing the collar. As part of her workup, she had a CT of the chest that led to the discovery of numerable liver and spleen metastatic deposits. CT of the abdomen and pelvis confirmed this finding. She had a rapid decline in clinical status, became increasingly obtunded and looked to have developed hepatic encephalopathy (we did not do lab testing for this, it was a clinical diagnosis, and by the time this was determined clinically she was on comfort measures and did not want labs drawn). She did have elevated troponins to suggest non-ST segment elevation myocardial infarction which was treated conservatively. The patient rapidly became obtunded and then unresponsive. She wanted comfort measures. Hospice was consulted but the patient peacefully on 06/01/2019.
== END 2019-06-01 21:23 | disposition expired | DRG 542 ==
LOC: M ED 11:13 → EDBD 11:13 → M ED INP 15:06 → ENRESERVTM 15:14 → ENRESERVDT 15:14 → M MS5PR 16:20
PROVIDERS: ADMIT Internal Medicine; ATTEND Family Medicine
DX: M84.58XA Pathological fracture in neoplastic disease, other specified site, initial encounter for fracture (principal); I21.4 Non-ST elevation (NSTEMI) myocardial infarction; K72.00 Acute and subacute hepatic failure without coma; C79.51 Secondary malignant neoplasm of bone; C78.7 Secondary malignant neoplasm of liver and intrahepatic bile duct; C78.89 Secondary malignant neoplasm of other digestive organs; J44.1 Chronic obstructive pulmonary disease with (acute) exacerbation; Z66 Do not resuscitate; Z51.5 Encounter for palliative care; I10 Essential (primary) hypertension; M81.0 Age-related osteoporosis without current pathological fracture; J84.10 Pulmonary fibrosis, unspecified; C80.1 Malignant (primary) neoplasm, unspecified; Z85.118 Personal history of other malignant neoplasm of bronchus and lung; E78.5 Hyperlipidemia, unspecified; E55.9 Vitamin D deficiency, unspecified; E11.9 Type 2 diabetes mellitus without complications; Z88.6 Allergy status to analgesic agent; Z88.8 Allergy status to other drugs, medicaments and biological substances